=== PATIENT | female | born 1970 | race Caucasian/White ===

== ENCOUNTER 2018-02-11 14:28 | Inpatient (IN) | payer MEDICAID ==
[~2018-02-11] VITALS: Ht 172.7 cm; Wt 105.3 kg
[2018-02-11 15:14] LABS: Basophils # (auto) 0 uL; Basophils % (auto) 0.6 % (0.0-2.0); Eosinophils # (auto) 0.1 uL; Eosinophils % (auto) 0.8 % (0.0-7.0); Hematocrit 49.8 % (36.0-46.0); Hemoglobin 16.8 g/dL (12.2-16.2); Mean Corpuscular Hemoglobin 32.2 pg (28.0-32.0); Mean Corpuscular Hgb Conc. 33.6 g/dL (32.0-36.0); Mean Corpuscular Volume 95.6 fL (80.0-100.0); Monocytes # (auto) 0.7 uL; Monocytes % (auto) 7.4 % (0.0-12.0); Neutrophils # (auto) 7.2 uL; Neutrophils % (auto) 80.2 % (37.0-80.0); Platelet Count (auto) 257 10^3/uL (140-450); Red Blood Cells 5.21 10^6/uL (4.0-5.20); Red Cell Distribution Width 14.7 % (11.8-14.3); White Blood Cell 8.9 10^3/uL (4.4-10.8)
[2018-02-11 15:32] LABS: Urine Bacteria NONE SEEN /hpf (None Seen); Urine Blood Negative /uL (Negative); Urine Specific Gravity 1.016 (1.001-1.035); Urine WBC <1 /hpf (0 - 5)
[2018-02-11 15:33] LABS: Albumin 2.8 g/dL (3.4-5.0); BUN/Creatinine Ratio 17.7; Bilirubin, Total 0.6 mg/dL (0.2-1.0); Calcium 8.5 mg/dL (8.5-10.1); Magnesium 1.9 mg/dL (1.6-2.6); Potassium 4.1 mmol/L (3.5-5.1); Total Protein 6.5 g/dL (6.4-8.2)
[2018-02-11] MEDS ORDERED: IOHEXOL 350 MG/ML 100ML IJ ONE (17:07)
[2018-02-11] MEDS ORDERED: FUROSEMIDE 40 MG/4 ML VIAL IV ONE (18:45)
[2018-02-11] MEDS ORDERED: cefTRIAXone 1GM/10ml IVPUSH 10 ML IV ONE (18:45)
[2018-02-11] MEDS ORDERED: NITROGLYCERIN 0.4 MG SL TAB SL PRN (19:00)
[2018-02-11] MEDS ORDERED: MORPHINE SULFATE 4 MG/ML SYR/VIAL IV PRN (19:00)
[2018-02-11] MEDS ORDERED: chlordiazePOXIDE HCL 25 MG CAP PO PRN (20:00)
[2018-02-11] MEDS ORDERED: HYDROcodone-ACET 5/325MG TAB PO PRN (20:00)
[2018-02-11] MEDS ORDERED: THIAMINE 100mg/ml INJ (200mg/2ml VIAL) IV ONE (20:00)
[2018-02-11] MEDS ORDERED: ENALAPRILAT 1.25 MG/ML-1ML VIAL IV PRN (20:00)
[2018-02-11] MEDS ORDERED: LEVOFLOXACIN 500MG 100 ML IV ONE (20:00)
[2018-02-11] MEDS ORDERED: ONDANSETRON HCL 4 MG/2 ML VIAL IV PRN (20:00)
[2018-02-11] MEDS ORDERED: LACTULOSE 20Gm/30ML SOLN PO PRN (20:00)
[2018-02-11 20:56] LABS: Alcohol, Urine < 3.0 mg/dL (0-5); Amphetamine Screen, Urine POSITIVE (NEGATIVE); Barbiturate Scree,Urine NEGATIVE (NEGATIVE); Benzodiazephine Screen, Urine NEGATIVE (NEGATIVE); Cannabinoid Screen, Urine NEGATIVE (NEGATIVE); Cocaine Screen, Urine NEGATIVE (NEGATIVE); Opiate Scree,Urine NEGATIVE (NEGATIVE); Phencyclidine Screen, Urine NEGATIVE (NEGATIVE)
[2018-02-11 21:29] LABS: INR 0.96 (0.9-1.15); Partial Thromboplastin Time 23.8 sec (23.78-33.04); Prothrombin Time 10.3 sec (9.27-12.13)
[2018-02-11 21:39] VITALS: BP 151/104
[2018-02-11 22:00] VITALS: BP 147/93
[2018-02-11] MEDS: POTASSIUM CHL 20 Meq TABLET PO SCH (22:30)
[2018-02-11] MEDS: SODIUM CHLOR 0.9% PF (SALINE LOCK) 10ML VIAL/SYR IV SCH (22:30)
[2018-02-11] MEDS: ATORVASTATIN 20 MG TAB PO SCH (22:30)
[2018-02-11] MEDS: CARVEDILOL 3.125 MG TAB PO SCH (22:30)
[2018-02-11] MEDS: TEMAZEPAM 15 MG CAP PO PRN (22:49)
[2018-02-11] MEDS: MORPHINE SULFATE 4 MG/ML SYR/VIAL IV PRN (23:10)
[2018-02-12] MEDS: chlordiazePOXIDE HCL 5 MG CAP PO SCH ×6 (00:32→23:52)
[2018-02-12] MEDS ORDERED: ASPI-498 OR (04:48)
[2018-02-12] MEDS ORDERED: ESOM40CA39 PO (04:48)
[2018-02-12] MEDS ORDERED: BENA20TA14 PO (04:48)
[2018-02-12] MEDS ORDERED: TRAZ-220 PO (04:48)
[2018-02-12] MEDS ORDERED: NITR0.4S29 SL (04:48)
[2018-02-12 05:00] VITALS: BP 113/82
[2018-02-12] MEDS: SODIUM CHLOR 0.9% PF (SALINE LOCK) 10ML VIAL/SYR IV SCH ×3 (05:58→22:00)
[2018-02-12] MEDS: FUROSEMIDE 40 MG/4 ML VIAL IV SCH ×2 (05:59→18:26)
[2018-02-12 07:20] LABS: Basophils # (auto) 0.1 uL; Basophils % (auto) 0.8 % (0.0-2.0); Eosinophils # (auto) 0.2 uL; Eosinophils % (auto) 2.4 % (0.0-7.0); Hematocrit 48.5 % (36.0-46.0); Hemoglobin 16.5 g/dL (12.2-16.2); Lymphocytes # (auto) 1.1 uL; Lymphocytes % (auto) 16.6 % (10.0-50.0); Mean Corpuscular Hemoglobin 32.3 pg (28.0-32.0); Monocytes # (auto) 0.5 uL; Monocytes % (auto) 7.9 % (0.0-12.0); Neutrophils # (auto) 4.8 uL; Neutrophils % (auto) 72.3 % (37.0-80.0); Platelet Count (auto) 215 10^3/uL (140-450); Red Blood Cells 5.11 10^6/uL (4.0-5.20); Red Cell Distribution Width 14.4 % (11.8-14.3); White Blood Cell 6.6 10^3/uL (4.4-10.8)
[2018-02-12 07:43] LABS: Albumin 2.7 g/dL (3.4-5.0); BUN/Creatinine Ratio 18.4; Bilirubin, Total 0.4 mg/dL (0.2-1.0); Calcium 8.9 mg/dL (8.5-10.1); Potassium 3.6 mmol/L (3.5-5.1); Total Protein 6.3 g/dL (6.4-8.2)
[2018-02-12 08:31] VITALS: BP 115/74
[2018-02-12] MEDS ORDERED: NITROGLYCERIN 0.2MG/HR TOPICAL PATCH TD SCH (10:00)
[2018-02-12] MEDS: LEVOFLOXACIN 500MG 100 ML IV SCH (10:07)
[2018-02-12] MEDS: THIAMINE 100mg/ml INJ (200mg/2ml VIAL) IV SCH (10:07)
[2018-02-12] MEDS: PANTOPRAZOLE 40 MG TAB PO SCH (10:08)
[2018-02-12] MEDS: POTASSIUM CHL 20 Meq TABLET PO SCH ×2 (10:08→21:48)
[2018-02-12] MEDS: ASPirin 81 mg TAB PO SCH (10:08)
[2018-02-12] MEDS: ENOXAPARIN SOD 40 MG/0.4 ML SYRINGE SC SCH (10:08)
[2018-02-12] MEDS: ENALAPRIL MALEATE 2.5 MG TAB PO SCH (10:13)
[2018-02-12] MEDS: CARVEDILOL 3.125 MG TAB PO SCH ×2 (10:14→21:49)
[2018-02-12] MEDS: ACETAMINOPHEN 500 MG TAB PO PRN (12:17)
[2018-02-12 12:54] VITALS: BP 136/79
[2018-02-12] MEDS: MORPHINE SULFATE 4 MG/ML SYR/VIAL IV PRN ×2 (13:43→18:25)
[2018-02-12 16:36] VITALS: BP 119/75
[2018-02-12] MEDS: ATORVASTATIN 20 MG TAB PO SCH (21:49)
[2018-02-12 22:00] VITALS: BP 115/78
[2018-02-13] MEDS: MORPHINE SULFATE 4 MG/ML SYR/VIAL IV PRN (00:20)
[2018-02-13 05:00] VITALS: BP 119/84
[2018-02-13] MEDS: SODIUM CHLOR 0.9% PF (SALINE LOCK) 10ML VIAL/SYR IV SCH ×3 (05:54→22:17)
[2018-02-13] MEDS: chlordiazePOXIDE HCL 5 MG CAP PO SCH ×4 (05:54→23:15)
[2018-02-13] MEDS: FUROSEMIDE 40 MG/4 ML VIAL IV SCH ×2 (05:54→18:07)
[2018-02-13 09:18] VITALS: BP 124/98
[2018-02-13] MEDS: ENOXAPARIN SOD 40 MG/0.4 ML SYRINGE SC SCH (10:57)
[2018-02-13] MEDS: LEVOFLOXACIN 500MG 100 ML IV SCH (10:57)
[2018-02-13] MEDS: THIAMINE 100mg/ml INJ (200mg/2ml VIAL) IV SCH (10:58)
[2018-02-13] MEDS: CARVEDILOL 3.125 MG TAB PO SCH ×2 (10:59→21:44)
[2018-02-13] MEDS: ENALAPRIL MALEATE 2.5 MG TAB PO SCH (10:59)
[2018-02-13] MEDS: ASPirin 81 mg TAB PO SCH (10:59)
[2018-02-13] MEDS: POTASSIUM CHL 20 Meq TABLET PO SCH ×2 (10:59→21:44)
[2018-02-13] MEDS: PANTOPRAZOLE 40 MG TAB PO SCH (11:00)
[2018-02-13 13:00] VITALS: BP 128/89
[2018-02-13 17:24] VITALS: BP 132/82
[2018-02-13] MEDS: ATORVASTATIN 20 MG TAB PO SCH (21:44)
[2018-02-13 21:50] VITALS: BP 102/68
[2018-02-14 04:54] VITALS: BP 114/86
[2018-02-14] MEDS: chlordiazePOXIDE HCL 5 MG CAP PO SCH ×3 (06:00→18:17)
[2018-02-14] MEDS: SODIUM CHLOR 0.9% PF (SALINE LOCK) 10ML VIAL/SYR IV SCH ×3 (06:11→22:03)
[2018-02-14] MEDS: FUROSEMIDE 40 MG/4 ML VIAL IV SCH ×2 (06:11→18:17)
[2018-02-14] MEDS: ACETAMINOPHEN 500 MG TAB PO PRN (06:16)
[2018-02-14 06:59] LABS: Calcium 8.9 mg/dL (8.5-10.1); Potassium 4.3 mmol/L (3.5-5.1)
[2018-02-14 07:01] LABS: Basophils # (auto) 0 uL; Basophils % (auto) 0.3 % (0.0-2.0); Eosinophils # (auto) 0.1 uL; Eosinophils % (auto) 1.5 % (0.0-7.0); Hematocrit 52.9 % (36.0-46.0); Hemoglobin 17.9 g/dL (12.2-16.2); Lymphocytes # (auto) 1.1 uL; Lymphocytes % (auto) 13.6 % (10.0-50.0); Mean Corpuscular Hemoglobin 32.1 pg (28.0-32.0); Mean Corpuscular Hgb Conc. 33.8 g/dL (32.0-36.0); Monocytes # (auto) 0.8 uL; Monocytes % (auto) 9.4 % (0.0-12.0); Neutrophils # (auto) 6.4 uL; Neutrophils % (auto) 75.2 % (37.0-80.0); Nucleated Red Blood Cells % 0.1 %; Platelet Count (auto) 202 10^3/uL (140-450); Red Blood Cells 5.57 10^6/uL (4.0-5.20); Red Cell Distribution Width 14.6 % (11.8-14.3); White Blood Cell 8.5 10^3/uL (4.4-10.8)
[2018-02-14 07:02] LABS: BUN/Creatinine Ratio 22.9
[2018-02-14 09:00] VITALS: BP 135/93
[2018-02-14] MEDS: POTASSIUM CHL 20 Meq TABLET PO SCH ×2 (09:56→22:01)
[2018-02-14] MEDS: LEVOFLOXACIN 500MG 100 ML IV SCH (09:56)
[2018-02-14] MEDS: PANTOPRAZOLE 40 MG TAB PO SCH (09:56)
[2018-02-14] MEDS: ENOXAPARIN SOD 40 MG/0.4 ML SYRINGE SC SCH (09:56)
[2018-02-14] MEDS: THIAMINE 100mg/ml INJ (200mg/2ml VIAL) IV SCH (09:56)
[2018-02-14] MEDS: ASPirin 81 mg TAB PO SCH (09:56)
[2018-02-14] MEDS: CARVEDILOL 3.125 MG TAB PO SCH ×2 (09:58→22:00)
[2018-02-14] MEDS: ENALAPRIL MALEATE 2.5 MG TAB PO SCH (09:58)
[2018-02-14] MEDS: LORazepam 0.5 MG TAB PO PRN (14:38)
[2018-02-14 17:30] VITALS: BP 117/88
[2018-02-14 22:00] VITALS: BP 109/67
[2018-02-14] MEDS: ATORVASTATIN 20 MG TAB PO SCH (22:01)
[2018-02-14] MEDS: TEMAZEPAM 15 MG CAP PO PRN (22:02)
[2018-02-15 04:46] VITALS: BP 122/81
[2018-02-15] MEDS: chlordiazePOXIDE HCL 5 MG CAP PO SCH ×4 (06:00→19:15)
[2018-02-15] MEDS: FUROSEMIDE 40 MG/4 ML VIAL IV SCH (06:05)
[2018-02-15] MEDS: SODIUM CHLOR 0.9% PF (SALINE LOCK) 10ML VIAL/SYR IV SCH ×3 (06:05→21:59)
[2018-02-15] MEDS ORDERED: ADENOSINE 87 MG in GIVE UN-DILUTED 0 ML IV ONE (08:15)
[2018-02-15 08:43] VITALS: BP 115/73
[2018-02-15 11:42] VITALS: BP 127/79
[2018-02-15 13:00] VITALS: BP 103/70
[2018-02-15] MEDS: THIAMINE 100mg/ml INJ (200mg/2ml VIAL) IV SCH (13:13)
[2018-02-15] MEDS: LEVOFLOXACIN 500MG 100 ML IV SCH (13:14)
[2018-02-15] MEDS: PANTOPRAZOLE 40 MG TAB PO SCH (13:14)
[2018-02-15] MEDS: ASPirin 81 mg TAB PO SCH (13:15)
[2018-02-15] MEDS: ENOXAPARIN SOD 40 MG/0.4 ML SYRINGE SC SCH (13:15)
[2018-02-15] MEDS: POTASSIUM CHL 20 Meq TABLET PO SCH ×2 (13:16→21:56)
[2018-02-15] MEDS: CARVEDILOL 3.125 MG TAB PO SCH ×2 (13:16→21:56)
[2018-02-15] MEDS: ENALAPRIL MALEATE 2.5 MG TAB PO SCH (13:17)
[2018-02-15] MEDS: LORazepam 0.5 MG TAB PO PRN (13:32)
[2018-02-15] MEDS ORDERED: HYDROcodone-ACET 5/325MG TAB PO PRN (15:00)
[2018-02-15] MEDS ORDERED: MORPHINE SULFATE 4 MG/ML SYR/VIAL IV PRN ×2 (15:00)
[2018-02-15 17:19] VITALS: BP 108/72
[2018-02-15] MEDS: FUROSEMIDE 40 MG TAB PO SCH (19:15)
[2018-02-15] MEDS: TEMAZEPAM 15 MG CAP PO PRN (21:55)
[2018-02-15] MEDS: ATORVASTATIN 20 MG TAB PO SCH (21:56)
[2018-02-15 22:00] VITALS: BP 105/76
[2018-02-16] MEDS: chlordiazePOXIDE HCL 5 MG CAP PO SCH ×4 (00:04→18:04)
[2018-02-16 05:28] VITALS: BP 118/79
[2018-02-16] MEDS: FUROSEMIDE 40 MG TAB PO SCH (06:11)
[2018-02-16] MEDS: SODIUM CHLOR 0.9% PF (SALINE LOCK) 10ML VIAL/SYR IV SCH ×3 (06:12→21:15)
[2018-02-16 07:29] LABS: BUN/Creatinine Ratio 24.1; Calcium 9.1 mg/dL (8.5-10.1)
[2018-02-16 08:48] VITALS: BP 104/79
[2018-02-16] MEDS ORDERED: ENA2.5T PO (10:41)
[2018-02-16] MEDS ORDERED: ATOR20TA50 PO (10:41)
[2018-02-16] MEDS ORDERED: POTA20TA53 PO (10:41)
[2018-02-16] MEDS ORDERED: FURO40TA4 PO (10:41)
[2018-02-16] MEDS ORDERED: CAR3125T PO (10:41)
[2018-02-16] MEDS: ASPirin 81 mg TAB PO SCH (10:49)
[2018-02-16] MEDS: THIAMINE HCL 100 MG TAB PO SCH (10:49)
[2018-02-16] MEDS: POTASSIUM CHL 20 Meq TABLET PO SCH (10:49)
[2018-02-16] MEDS: PANTOPRAZOLE 40 MG TAB PO SCH (10:49)
[2018-02-16] MEDS: CARVEDILOL 3.125 MG TAB PO SCH ×2 (10:50→21:16)
[2018-02-16] MEDS: ENOXAPARIN SOD 40 MG/0.4 ML SYRINGE SC SCH (10:50)
[2018-02-16] MEDS: ENALAPRIL MALEATE 2.5 MG TAB PO SCH (10:50)
[2018-02-16 13:00] VITALS: BP 113/87
[2018-02-16 17:00] VITALS: BP 106/69
[2018-02-16] MEDS: ATORVASTATIN 20 MG TAB PO SCH (21:16)
[2018-02-16 22:00] VITALS: BP 102/69
[2018-02-16] MEDS ORDERED: SODIUM CHLORIDE 0.9% 1,000 ML IV SCH (23:00)
[2018-02-17] MEDS: chlordiazePOXIDE HCL 5 MG CAP PO SCH ×3 (00:13→12:00)
[2018-02-17 05:00] VITALS: BP 99/64
[2018-02-17] MEDS: SODIUM CHLOR 0.9% PF (SALINE LOCK) 10ML VIAL/SYR IV SCH (06:40)
[2018-02-17] MEDS: LORazepam 0.5 MG TAB PO PRN (06:41)
[2018-02-17 09:00] VITALS: BP 104/76
[2018-02-17] MEDS ORDERED: LIDOCAINE 2% (LOCAL ANESTH.) PF 5ml SDV ONE (09:02)
[2018-02-17] MEDS ORDERED: ANGIOMAX 250 MG VIAL IV ONE (09:18)
[2018-02-17] MEDS ORDERED: SODIUM CHL 0.9% 0 ML ONE (09:19)
[2018-02-17] MEDS ORDERED: MIDAZOLAM HCL 1MG/1ML-2 ML VIAL ONE (09:19)
[2018-02-17] MEDS ORDERED: fentaNYL CITRATE 100 MCG/2 ML VL ONE (09:24)
[2018-02-17] MEDS: ENALAPRIL MALEATE 2.5 MG TAB PO SCH (10:00)
[2018-02-17] MEDS ORDERED: POTASSIUM CHL 20 Meq TABLET PO SCH (10:00)
[2018-02-17] MEDS: ENOXAPARIN SOD 40 MG/0.4 ML SYRINGE SC SCH (10:00)
[2018-02-17] MEDS: CARVEDILOL 3.125 MG TAB PO SCH (10:00)
[2018-02-17] MEDS: ASPirin 81 mg TAB PO SCH (10:00)
[2018-02-17] MEDS: THIAMINE HCL 100 MG TAB PO SCH (10:00)
[2018-02-17] MEDS: PANTOPRAZOLE 40 MG TAB PO SCH (10:00)
[2018-02-17] MEDS ORDERED: FUROSEMIDE 40 MG TAB PO SCH (10:00)
[2018-02-17 12:21] VITALS: BP 104/76
== END 2018-02-17 13:30 | disposition home or self-care (01) | DRG 192 ==
LOC: ER 14:30 → TELE 14:31 → TELE-WESTW 21:11
PROVIDERS: ADMIT Internal Medicine; ATTEND Internal Medicine
PROC: 4A023N7 Measurement of Cardiac Sampling and Pressure, Left Heart, Percutaneous Approach (ICD-10-PCS; principal; 2018-02-17)
PROC: B2111ZZ Fluoroscopy of Multiple Coronary Arteries using Low Osmolar Contrast (ICD-10-PCS; 2018-02-17)
PROC: B2151ZZ Fluoroscopy of Left Heart using Low Osmolar Contrast (ICD-10-PCS; 2018-02-17)
DX: I11.0 Hypertensive heart disease with heart failure (principal); I21.4 Non-ST elevation (NSTEMI) myocardial infarction; J18.1 Lobar pneumonia, unspecified organism; I42.7 Cardiomyopathy due to drug and external agent; E44.0 Moderate protein-calorie malnutrition; I42.9 Cardiomyopathy, unspecified; E66.01 Morbid (severe) obesity due to excess calories; J44.0 Chronic obstructive pulmonary disease with (acute) lower respiratory infection; I50.41 Acute combined systolic (congestive) and diastolic (congestive) heart failure; I50.82 Biventricular heart failure; E78.5 Hyperlipidemia, unspecified; F17.210 Nicotine dependence, cigarettes, uncomplicated; F12.90 Cannabis use, unspecified, uncomplicated; T43.625A Adverse effect of amphetamines, initial encounter; K21.9 Gastro-esophageal reflux disease without esophagitis; F41.9 Anxiety disorder, unspecified; N83.201 Unspecified ovarian cyst, right side; Z86.73 Personal history of transient ischemic attack (TIA), and cerebral infarction without residual deficits; Z90.49 Acquired absence of other specified parts of digestive tract; Z90.710 Acquired absence of both cervix and uterus; Z68.35 Body mass index [BMI] 35.0-35.9, adult; Y92.89 Other specified places as the place of occurrence of the external cause
CPT/HCPCS: 36415; 71045; 71046; 71275; 74176; 76604; 76830; 76856; 78452; 80048; 80053; 80061; 80307; 81001; 82550; 83605; 83735; 83880; 84443; 84484; 85025; 85379; 85610; 85652; 85730; 86141; 86304; 86850; 86900; 86901; 87040; 93005; 93017; 93306; 93458; 96365; 96375; 99152; 99291; A6257; J0153; J0696; J1956; J2001; J2250; J2405

== ENCOUNTER 2019-04-20 20:56 | Emergency (ER) | payer MEDICAID ==
[~2019-04-20] VITALS: Ht 172.7 cm; Wt 104.3 kg
[~2019-04-20 20:56] MED LIST: ASPI-498 OR; ATOR20TA50 PO; CAR3125T PO; ENAL2.5T2 PO; ESOM40CA39 PO; FURO40TA4 PO; NITR0.4S29 SL; POTA-220 PO; TRAZ-220 PO
[2019-04-20] MEDS ORDERED: cloNIDine HCL 0.1 MG TAB PO ONE (21:15)
[2019-04-20 21:54] LABS: Albumin 3.4 g/dL (3.4-5.0); Calcium 8.5 mg/dL (8.5-10.1)
[2019-04-20 21:57] LABS: BUN/Creatinine Ratio 20.5; Bilirubin, Total 0.3 mg/dL (0.2-1.0); Total Protein 6.5 g/dL (6.4-8.2)
[2019-04-20 22:00] LABS: Basophils # (auto) 0.1 uL; Basophils % (auto) 0.9 % (0.0-2.0); Eosinophils # (auto) 0.1 uL; Eosinophils % (auto) 1.1 % (0.0-7.0); Hematocrit 47.1 % (36.0-46.0); Hemoglobin 15.7 g/dL (12.2-16.2); Lymphocytes # (auto) 1.5 uL; Lymphocytes % (auto) 16.8 % (10.0-50.0); Mean Corpuscular Hemoglobin 31.9 pg (28.0-32.0); Mean Corpuscular Hgb Conc. 33.4 g/dL (32.0-36.0); Mean Corpuscular Volume 95.6 fL (80.0-100.0); Monocytes # (auto) 0.6 uL; Monocytes % (auto) 6.1 % (0.0-12.0); Neutrophils # (auto) 6.8 uL; Neutrophils % (auto) 75.1 % (37.0-80.0); Nucleated Red Blood Cells % 0.1 %; Platelet Count (auto) 242 10^3/uL (140-450); Red Blood Cells 4.93 10^6/uL (4.0-5.20); Red Cell Distribution Width 14.7 % (11.8-14.3)
[2019-04-20 22:20] LABS: Urine Bacteria NONE SEEN /hpf (None Seen); Urine Blood Negative /uL (Negative); Urine Specific Gravity 1.011 (1.001-1.035); Urine WBC 1 /hpf (0 - 5)
[2019-04-20 22:37] LABS: Alcohol, Urine < 3.0 mg/dL (0-5); Amphetamine Screen, Urine POSITIVE (NEGATIVE); Barbiturate Scree,Urine NEGATIVE (NEGATIVE); Benzodiazephine Screen, Urine NEGATIVE (NEGATIVE); Cannabinoid Screen, Urine NEGATIVE (NEGATIVE); Cocaine Screen, Urine NEGATIVE (NEGATIVE); Opiate Scree,Urine NEGATIVE (NEGATIVE); Phencyclidine Screen, Urine NEGATIVE (NEGATIVE)
[2019-04-21] MEDS ORDERED: FUROSEMIDE 40 MG/4 ML VIAL IV ONE (00:30)
[2019-04-21 02:00] VITALS: BP 145/100
== END 2019-04-21 02:16 | disposition home or self-care (01) ==
LOC: ER 20:58
DX: I20.9 Angina pectoris, unspecified (principal); I11.0 Hypertensive heart disease with heart failure; I50.9 Heart failure, unspecified; K21.9 Gastro-esophageal reflux disease without esophagitis; E78.5 Hyperlipidemia, unspecified; F17.210 Nicotine dependence, cigarettes, uncomplicated
CPT/HCPCS: 36415; 71045; 80053; 80307; 81001; 83880; 84484; 85025; 93005; 96374; 99284; J1940

== ENCOUNTER 2021-09-12 15:19 | Inpatient (IN) | payer MEDICAID ==
[~2021-09-12] VITALS: Ht 170.2 cm; Wt 117.9 kg
[~2021-09-12 15:19] MED LIST changes: -ASPI-498 OR; +ASPI-498 PO; +BENA20TA14 PO; +CAR125T PO; -CAR3125T PO; +CEPH500C PO; -ENAL2.5T2 PO; +POTA10TA51 PO
[2021-09-12] MEDS ORDERED: ASPirin 81 mg TAB PO ONE (15:45)
[2021-09-12 16:17] LABS: Basophils # (auto) 0.1 10 ^3/uL (0-0.2); Basophils % (auto) 0.8 % (0.0-2.0); Eosinophils # (auto) 0.1 10 ^3/uL (0-0.8); Eosinophils % (auto) 1.4 % (0.0-7.0); Hematocrit 46.9 % (36.0-46.0); Hemoglobin 16.1 g/dL (12.2-16.2); Lymphocytes # (auto) 1.4 10 ^3/uL (0.4-5.4); Lymphocytes % (auto) 18.7 % (10.0-50.0); Mean Corpuscular Hemoglobin 33.4 pg (28.0-32.0); Mean Corpuscular Hgb Conc. 34.3 g/dL (32.0-36.0); Mean Corpuscular Volume 97.5 fL (80.0-100.0); Monocytes # (auto) 0.6 10 ^3/uL (0-1.3); Monocytes % (auto) 8.3 % (0.0-12.0); Neutrophils # (auto) 5.4 10 ^3/uL (1.6-8.6); Neutrophils % (auto) 70.8 % (37.0-80.0); Nucleated Red Blood Cells % 0.1 %; Red Blood Cells 4.81 10^6/uL (4.0-5.20); Red Cell Distribution Width 14.4 % (11.8-14.3); White Blood Cell 7.7 10^3/uL (4.4-10.8)
[2021-09-12 16:42] LABS: Albumin 3.2 g/dL (3.4-5.0); Calcium 9.2 mg/dL (8.5-10.1); Magnesium 2.2 mg/dL (1.6-2.6); Potassium 4.3 mmol/L (3.5-5.1)
[2021-09-12 16:46] LABS: BUN/Creatinine Ratio 16.5; Bilirubin, Total 0.6 mg/dL (0.2-1.0)
[2021-09-12] MEDS ORDERED: ENOXAPARIN SOD 100 MG/1 ML SYRINGE SC ONE (17:15)
[2021-09-12] MEDS ORDERED: MORPHINE SULFATE INJECTION 2 MG/ML SYRG IV PRN ×2 (17:30→20:15)
[2021-09-12] MEDS ORDERED: NITROGLYCERIN 0.4 MG SL TAB SL PRN (17:30)
[2021-09-12] MEDS ORDERED: LORazepam 0.5 MG TAB PO PRN (20:15)
[2021-09-12] MEDS ORDERED: NIFEdipine ER 30 MG TAB PO ONE (20:15)
[2021-09-12] MEDS ORDERED: cefTRIAXone 1GM/50ML D5W 50 ML IV ONE (20:15)
[2021-09-12] MEDS ORDERED: MULTIPLE VITAMINS W/ MINERALS TAB PO ONE (20:15)
[2021-09-12] MEDS ORDERED: FOLIC ACID 1 MG TAB PO ONE (20:15)
[2021-09-12] MEDS ORDERED: PANTOPRAZOLE 40 MG/10 ML VIAL INJ IV ONE (20:15)
[2021-09-12] MEDS ORDERED: DOCUSATE SOD 100 MG CAP PO PRN (20:15)
[2021-09-12] MEDS ORDERED: CLINDAMYCIN 600MG IV 50 ML IV ONE (20:15)
[2021-09-12] MEDS ORDERED: IPRATROPIUM BROM 0.5 MG/2.5ML INH SOL NEB ONE (20:15)
[2021-09-12] MEDS ORDERED: hydrALAZINE HCL 20 MG/ML VL IV PRN (20:15)
[2021-09-12] MEDS ORDERED: LABETALOL HCL 5 MG/ML 4ML SYRINGE IV PRN (20:15)
[2021-09-12] MEDS ORDERED: METOPROLOL SUCCINATE XL 50 MG TAB PO ONE (20:15)
[2021-09-12] MEDS ORDERED: ONDANSETRON HCL 4 MG/2 ML VIAL IV PRN (20:15)
[2021-09-12] MEDS ORDERED: ACETAMINOPHEN 325 MG TAB PO PRN (20:15)
[2021-09-12] MEDS ORDERED: LORazepam 2MG/ML-1ML VIAL IV PRN (20:15)
[2021-09-12] MEDS ORDERED: BENAZEPRIL HCL 10 MG TAB PO ONE (20:15)
[2021-09-12] MEDS ORDERED: IPRATROPIUM BROM 0.5 MG/2.5ML INH SOL NEB SCH (20:41)
[2021-09-12 21:08] VITALS: BP 176/98
[2021-09-12 21:40] LABS: Phosphorus 3.8 mg/dL (2.5-4.90)
[2021-09-12] MEDS: IPRATROPIUM BROM 0.5 MG/2.5ML INH SOL NEB SCH (21:45)
[2021-09-12 21:46] LABS: INR 1.03 (0.9-1.15); Partial Thromboplastin Time 27.9 sec (23.6-33.0)
[2021-09-12] MEDS ORDERED: ATORVASTATIN 20 MG TAB PO SCH (22:00)
[2021-09-12] MEDS: CLINDAMYCIN 600MG IV 50 ML IV SCH (23:57)
[2021-09-13] MEDS: HYDROcodone-ACET 5/325MG TAB PO PRN ×2 (01:51→16:59)
[2021-09-13 01:52] VITALS: BP 183/116
[2021-09-13] MEDS: IPRATROPIUM BROM 0.5 MG/2.5ML INH SOL NEB SCH ×4 (02:05→14:00)
[2021-09-13 05:21] VITALS: BP 118/63
[2021-09-13] MEDS: CLINDAMYCIN 600MG IV 50 ML IV SCH ×2 (06:25→13:48)
[2021-09-13 07:18] LABS: Basophils # (auto) 0 10 ^3/uL (0-0.2); Basophils % (auto) 0.4 % (0.0-2.0); Eosinophils # (auto) 0.1 10 ^3/uL (0-0.8); Eosinophils % (auto) 1.6 % (0.0-7.0); Hemoglobin 15.8 g/dL (12.2-16.2); Lymphocytes # (auto) 1.5 10 ^3/uL (0.4-5.4); Lymphocytes % (auto) 19.9 % (10.0-50.0); Mean Corpuscular Hemoglobin 33.5 pg (28.0-32.0); Mean Corpuscular Hgb Conc. 34.3 g/dL (32.0-36.0); Mean Corpuscular Volume 97.7 fL (80.0-100.0); Monocytes # (auto) 0.6 10 ^3/uL (0-1.3); Monocytes % (auto) 7.8 % (0.0-12.0); Neutrophils # (auto) 5.2 10 ^3/uL (1.6-8.6); Neutrophils % (auto) 70.3 % (37.0-80.0); Nucleated Red Blood Cells % 0.1 %; Red Blood Cells 4.71 10^6/uL (4.0-5.20); Red Cell Distribution Width 14.8 % (11.8-14.3); White Blood Cell 7.4 10^3/uL (4.4-10.8)
[2021-09-13 07:26] LABS: INR 1.03 (0.9-1.15); Partial Thromboplastin Time 28.3 sec (23.6-33.0)
[2021-09-13 07:54] LABS: Urine Bacteria FEW /hpf (None Seen); Urine Blood Negative /uL (Negative); Urine Specific Gravity 1.026 (1.001-1.035); Urine WBC 11 /hpf (0 - 5)
[2021-09-13 08:48] LABS: Potassium 3.7 mmol/L (3.5-5.1)
[2021-09-13 08:49] LABS: Alcohol, Urine < 3.0 mg/dL (0-10); Amphetamine Screen, Urine POSITIVE (NEGATIVE); Barbiturate Scree,Urine NEGATIVE (NEGATIVE); Benzodiazephine Screen, Urine NEGATIVE (NEGATIVE); Cannabinoid Screen, Urine POSITIVE (NEGATIVE); Cocaine Screen, Urine NEGATIVE (NEGATIVE); Phencyclidine Screen, Urine NEGATIVE (NEGATIVE)
[2021-09-13 08:52] LABS: Albumin 3.1 g/dL (3.4-5.0); BUN/Creatinine Ratio 15.9; Calcium 9.2 mg/dL (8.5-10.1)
[2021-09-13 08:55] LABS: Bilirubin, Total 0.4 mg/dL (0.2-1.0); Total Protein 6.7 g/dL (6.4-8.2)
[2021-09-13 08:55] LABS: Opiate Scree,Urine NEGATIVE (NEGATIVE)
[2021-09-13 09:00] VITALS: BP 113/78
[2021-09-13] MEDS ORDERED: cefTRIAXone 1GM/50ML D5W 50 ML IV SCH (09:00)
[2021-09-13] MEDS ORDERED: MULTIPLE VITAMINS W/ MINERALS TAB PO SCH (10:00)
[2021-09-13] MEDS ORDERED: BENAZEPRIL HCL 10 MG TAB PO SCH (10:00)
[2021-09-13] MEDS ORDERED: FOLIC ACID 1 MG TAB PO SCH (10:00)
[2021-09-13] MEDS ORDERED: ENOXAPARIN SOD 40 MG/0.4 ML SYRINGE SC SCH (10:00)
[2021-09-13] MEDS ORDERED: METOPROLOL SUCCINATE XL 50 MG TAB PO SCH (10:00)
[2021-09-13] MEDS ORDERED: PANTOPRAZOLE 40 MG/10 ML VIAL INJ IV SCH (10:00)
[2021-09-13] MEDS ORDERED: NIFEdipine ER 30 MG TAB PO SCH (10:00)
[2021-09-13] MEDS ORDERED: ASPirin 81 mg TAB PO SCH (10:00)
[2021-09-13 13:25] VITALS: BP 116/74
[2021-09-13 16:48] VITALS: BP 148/99
[2021-09-13] MEDS ORDERED: IPRATROPIUM BROM 0.5 MG/2.5ML INH SOL NEB SCH (18:00)
[2021-09-13 19:21] LABS: Magnesium 2.1 mg/dL (1.6-2.6)
[2021-09-13 19:27] LABS: Phosphorus 3.4 mg/dL (2.5-4.90)
[2021-09-14 14:46] LABS: Uric Acid 5.8 mg/dL (2.6-6.0)
[2021-09-14 14:47] LABS: CRP High Sensitivity 0.611 mg/dL (< 0.3)
== END 2021-09-13 17:35 | disposition left against medical advice (07) | DRG 190 ==
LOC: ER 15:19 → TELE 17:22 → TELE-EAST 22:28
PROVIDERS: ADMIT Hospitalist; ATTEND Internal Medicine
DX: I21.4 Non-ST elevation (NSTEMI) myocardial infarction (principal); I42.8 Other cardiomyopathies; E11.9 Type 2 diabetes mellitus without complications; I11.0 Hypertensive heart disease with heart failure; I50.22 Chronic systolic (congestive) heart failure; F10.10 Alcohol abuse, uncomplicated; F15.10 Other stimulant abuse, uncomplicated; Z53.29 Procedure and treatment not carried out because of patient's decision for other reasons; I16.1 Hypertensive emergency; N83.201 Unspecified ovarian cyst, right side; Z20.822 Contact with and (suspected) exposure to COVID-19; Z90.49 Acquired absence of other specified parts of digestive tract; Z90.710 Acquired absence of both cervix and uterus; Z86.73 Personal history of transient ischemic attack (TIA), and cerebral infarction without residual deficits; Z83.3 Family history of diabetes mellitus; Z91.19 Patient's noncompliance with other medical treatment and regimen; J44.9 Chronic obstructive pulmonary disease, unspecified
CPT/HCPCS: 36415; 70450; 71046; 80053; 80061; 80307; 81001; 82550; 82728; 83036; 83615; 83690; 83735; 83880; 84100; 84156; 84443; 84484; 84550; 85025; 85379; 85610; 85652; 85730; 86141; 87040; 87086; 93005; 94640; 96372; 99291; C9113; G0378; J0696; J3490

== ENCOUNTER 2023-06-25 11:23 | Emergency (ER) | payer MEDICAID ==
[~2023-06-25] VITALS: Ht 172.7 cm; Wt 111.8 kg
[~2023-06-25 11:23] MED LIST changes: +BENA-36 PO; -BENA20TA14 PO
[2023-06-25] MEDS ORDERED: METF-489 PO (12:08)
[2023-06-25] MEDS: cloNIDine HCL 0.1 MG TAB PO ONE ×2 (12:08→14:18)
[2023-06-25] MEDS ORDERED: POTA-220 PO (12:08)
[2023-06-25] MEDS ORDERED: BENA-36 PO (12:08)
[2023-06-25] MEDS ORDERED: CARV12.544 PO (12:08)
[2023-06-25 13:14] LABS: Basophils # (auto) 0 10 ^3/uL (0-0.2); Basophils % (auto) 0.4 % (0.0-2.0); Eosinophils # (auto) 0.1 10 ^3/uL (0-0.8); Eosinophils % (auto) 1.2 % (0.0-7.0); Hemoglobin 17.1 g/dL (12.2-16.2); Lymphocytes # (auto) 1.4 10 ^3/uL (0.4-5.4); Mean Corpuscular Hgb Conc. 32.8 g/dL (32.0-36.0); Mean Corpuscular Volume 97.4 fL (80.0-100.0); Monocytes # (auto) 0.7 10 ^3/uL (0-1.3); Monocytes % (auto) 8.2 % (0.0-12.0); Neutrophils # (auto) 5.8 10 ^3/uL (1.6-8.6); Neutrophils % (auto) 73.2 % (37.0-80.0); Nucleated Red Blood Cells % 0.3 %; Red Blood Cells 5.34 10^6/uL (4.0-5.20); Red Cell Distribution Width 15.5 % (11.8-14.3)
[2023-06-25 13:36] LABS: Chloride 106 mmol/L (98-107); Sodium 141 mmol/L (136-145)
[2023-06-25 13:37] LABS: Anion Gap 5 (5-15); Carbon Dioxide 30 mmol/L (20-30)
[2023-06-25 13:38] LABS: Calcium 9.9 mg/dL (8.5-10.1)
[2023-06-25 13:42] LABS: Glucose 96 mg/dL (74-106)
[2023-06-25 13:43] LABS: BUN/Creatinine Ratio 13.9 (10.0-20.0); Blood Urea Nitrogen 11 mg/dL (9-23)
[2023-06-25 15:25] VITALS: BP 151/88; PULSE 87; RESP 17; TEMP 98.7; O2SAT 98
== END 2023-06-25 15:26 | disposition home or self-care (01) ==
LOC: ER 11:23
DX: I16.0 Hypertensive urgency (principal); I11.0 Hypertensive heart disease with heart failure; I50.9 Heart failure, unspecified; E11.9 Type 2 diabetes mellitus without complications; E78.5 Hyperlipidemia, unspecified; J44.9 Chronic obstructive pulmonary disease, unspecified; K21.9 Gastro-esophageal reflux disease without esophagitis; F17.210 Nicotine dependence, cigarettes, uncomplicated; Z90.49 Acquired absence of other specified parts of digestive tract; Z90.710 Acquired absence of both cervix and uterus; Z79.82 Long term (current) use of aspirin; Z79.899 Other long term (current) drug therapy
CPT/HCPCS: 36415; 80048; 82962; 85025; 93005

== ENCOUNTER 2023-09-03 14:10 | Emergency (ER) | payer MEDICAID ==
[~2023-09-03] VITALS: Ht 172.7 cm; Wt 111.5 kg
[~2023-09-03 14:10] MED LIST changes: +CARV12.544 PO; +METF-489 PO; +POTA-36 PO; -POTA10TA51 PO
[2023-09-03 14:40] VITALS: BP 154/112; RESP 17; O2SAT 96
[2023-09-03] MEDS ORDERED: ONDANSETRON ODT 4 MG TAB PO ONE (15:00)
[2023-09-03] MEDS ORDERED: HYDROcodone-ACET 10/325MG TAB PO ONE (15:00)
[2023-09-03 15:30] LABS: Urine Amorphous Crystal FEW /hpf (None Seen); Urine Bacteria FEW /hpf (None Seen); Urine Blood 1+ /uL (Negative); Urine Clarity Clear (Clear); Urine Color Yellow (Yellow); Urine Protein, UAD 3+ (Negative); Urine Specific Gravity 1.012 (1.001-1.035); Urine Urobilinogen Normal (Negative); Urine WBC 3 /hpf (0 - 5)
[2023-09-03 15:31] LABS: Basophils # (auto) 0.1 10 ^3/uL (0-0.2); Basophils % (auto) 0.7 % (0.0-2.0); Eosinophils # (auto) 0.1 10 ^3/uL (0-0.8); Eosinophils % (auto) 1.6 % (0.0-7.0); Hematocrit 50.2 % (36.0-46.0); Hemoglobin 16.6 g/dL (12.2-16.2); Lymphocytes # (auto) 1.4 10 ^3/uL (0.4-5.4); Lymphocytes % (auto) 17.1 % (10.0-50.0); Mean Corpuscular Hemoglobin 31.1 pg (28.0-32.0); Mean Corpuscular Volume 94.4 fL (80.0-100.0); Monocytes # (auto) 0.6 10 ^3/uL (0-1.3); Monocytes % (auto) 7.8 % (0.0-12.0); Neutrophils # (auto) 5.9 10 ^3/uL (1.6-8.6); Neutrophils % (auto) 72.8 % (37.0-80.0); Nucleated Red Blood Cells % 0.1 %; Red Blood Cells 5.32 10^6/uL (4.0-5.20); Red Cell Distribution Width 15.1 % (11.8-14.3); White Blood Cell 8.1 10^3/uL (4.4-10.8)
[2023-09-03 15:51] LABS: Alanine Aminotransferase 22 U/L (7-40); Albumin 4.1 g/dL (3.2-4.8); Alkaline Phosphatase 129 U/L (46-116); Anion Gap 6 (5-15); Aspartate Aminotransferase 25 U/L (13-40); BUN/Creatinine Ratio 14.4 (10.0-20.0); Bilirubin, Total 0.9 mg/dL (0.2-1.0); Blood Urea Nitrogen 13 mg/dL (9-23); Calcium 9.8 mg/dL (8.7-10.4); Carbon Dioxide 24 mmol/L (20-30); Chloride 107 mmol/L (98-107); Glucose 150 mg/dL (74-106); Lipase 24 U/L (12-53); Potassium 3.9 mmol/L (3.5-5.1); Sodium 137 mmol/L (136-145); Total Protein 6.4 g/dL (5.7-8.2)
[2023-09-03 16:44] VITALS: PULSE 90
[2023-09-03] MEDS ORDERED: ZOFR4T PO (19:16)
[2023-09-03] MEDS ORDERED: ACE3T PO (19:16)
== END 2023-09-03 23:27 | disposition left against medical advice (07) ==
LOC: ER 14:10
DX: R10.84 Generalized abdominal pain (principal); R10.2 Pelvic and perineal pain; R79.89 Other specified abnormal findings of blood chemistry; I11.0 Hypertensive heart disease with heart failure; I50.9 Heart failure, unspecified; E11.9 Type 2 diabetes mellitus without complications; E78.5 Hyperlipidemia, unspecified; J44.9 Chronic obstructive pulmonary disease, unspecified; K21.9 Gastro-esophageal reflux disease without esophagitis; F17.210 Nicotine dependence, cigarettes, uncomplicated; Z86.73 Personal history of transient ischemic attack (TIA), and cerebral infarction without residual deficits; Z90.49 Acquired absence of other specified parts of digestive tract; Z90.710 Acquired absence of both cervix and uterus; Z79.82 Long term (current) use of aspirin; Z79.899 Other long term (current) drug therapy
CPT/HCPCS: 36415; 74176; 80053; 81001; 81025; 83605; 83690; 83880; 84484; 84702; 85025; 93005

== ENCOUNTER 2024-04-22 19:23 | Emergency (ER) | payer MEDICAID ==
[~2024-04-22] VITALS: Ht 172.7 cm; Wt 112.0 kg
[~2024-04-22 19:23] MED LIST changes: +ACE3T PO; +ZOFR4T PO
--- NOTE | 2024-04-22 19:45 | ED.PDOC ---
Psychiatric HPI Comments 53-year-old female who came to ER for overdose. Patient does have history of hypertension, congestive heart failure, alcohol and methamphetamine abuse. At about 1815 hours, patient intentionally took unknown amounts of Benazepril 20 mg tablets, Chlorthalidone 20mg tablets and Amlodipine/Benazepril tablets in an attempt to harm herself. Patient also admits to have been drinking alcohol earlier. Denies using any other drugs. Denies any history of suicide attempts. Denies being homicidal or and hallucinations. Patient appears very anxious at this time of care Chief Complaint: Overdose Time Seen by MD: 19:43 Primary Care Provider: LUCIANO Chu Notes: Nurses Notes Information Source: Patient Mode of Arrival: Ambulatory Severity: Unable to Care for Self, Unable to Control Self Severity of Pain: Moderate Severity of Mental Status: Moderate Severity of Symptoms: Moderate Timing: Minutes Duration: Since onset Prehospital treatment: None Presents with: Depression, Anxiety, Unclear Thinking, Suicidal Ideation, A lcohol Intoxication Attempt: Ingestion Ingestion: Intentional, Multiple, Ingestion Observed, Drug(s) Ingested (Benazepril 20 mg tablets, Chlorthalidone 20mg tablets and Amlodipine/Benazepril tablets), Amount Ingested (Unknown), ETOH Circumstance: Medical Clearance Current substance abuse: ETOH, Amphetamines Stressors: Relationships History of: Anxiety, Alcoholism, Substance Abuse Quality: Hopelessness, Confusion Associated signs and symptoms: Depression, Hopeless, Anxiety, ETOH Past Medical History PAST MEDICAL HISTORY: Anxiety, CHF, HTN, TIA Surgical History: Cholecystectomy, Hysterectomy Surgical History (Other): Neck surgery GENERAL CARGO CLERK History: No Pertinent GENERAL CARGO CLERK History Family History Family History: Family hx of DM, Family hx of Cancer, Family hx of heart fabricio Social History Smoker: Cigarettes, Greater Than 1 Pack/Day Alcohol: Heavy Drugs: Marijuana, Methamphetamine Lives In: Home Constitutional: denies: chills, diaphoresis, fatigue, fever, malaise, sweats, weakness, others EENTM: denies: blurred vision, double vision, ear bleeding, ear discharge, ear drainage, ear pain, ear ringing, eye pain, eye redness, hearing loss, mouth pain, mouth swelling, nasal discharge, nose bleeding, nose congestion, nose pain, photophobia, tearing, throat pain, throat swelling, voice changes, others Respiratory: denies: cough, hemoptysis, orthopnea, SOB at rest, shortness of breath, SOB with excertion, stridor, wheezing, others Cardiovascular: denies: chest pain, dizzy spells, diaphoresis, Dyspnea on exertion, edema, irregular heart beat, left arm pain, lightheadedness, palpitations, PND, syncope, others Gastrointestinal: denies: abdomen distended, abdominal pain, blood streaked bowels, constipated, diarrhea, dysphagia, difficulty swallowing, hematemesis, melena, nausea, poor appetite, poor fluid intake, rectal bleeding, rectal pain, vomiting, others Genitourinary: denies: abnormal vagina bleeding, burning, dyspareunia, dysuria, flank pain, frequency, hematuria, incontinence, pain, , vagina discharg e, urgency, others Neurological: denies: dizziness, fainting, headache, left sided numbness, left sided weakness, numbness, paresthesia, pre-existing deficit, right sided numbness, right sided weakness, seizure, speech problems, tingling, tremors, weakness, others Musculoskeletal: denies: back pain, gout, joint pain, joint swelling, muscle pain, muscle stiffness, neck pain, others Integumetry: denies: bruises, change in color, change in hair/nails, dryness, laceration, lesions, lumps, rash, wounds, others Allergic/Immunocompromised: denies: Difficulty Healing, Frequent Infections, Hives, Itching, others Hematologic/Lymphatic: denies: anemia, blood clots, easy bleeding, easy bruising, swollen glands, others Endocrine: denies: excessive hunger, excessive sweating, excessive thirst, excessive urination, flushing, intolerance to cold, intolerance to heat, unexplained weight gain, unexplained weight loss, others Psychiatric: reports: anxiety; denies: bipolar disorder, depression, hopeless, panic disorder, schizophrenia, sleepless, suicidal, others Physical Exam General Appearance: No Apparent Distress, Normal HEENT: Normal ENT Inspection, Pharynx Normal, TMs Normal Neck: Full Range of Motion, Non-Tender, Normal, Normal Inspection Respiratory: Chest Non-Tender, Lungs Clear, No Accessory Muscle Use, No Respiratory Distress, Normal Breath Sounds Cardiovascular: No Edema, No JVD, No Murmur, No Gallop, Normal Peripheral Pulses, Regular Rate/Rhythm Breast Exam: Deferred Gastrointestinal: No Organomegaly, Non Tender, No Pulsatile Mass, Normal Bowel Sounds, Soft Genitalia: Deferred Pelvic: Deferred Rectal: Deferred Extremities: No calf tenderness, Normal capillary refill, Normal inspection, Normal range of motion, Non-tender, No pedal edema Musculoskeletal : Apperance: Normal Neurologic: Alert, agricultural service technician II-XII nml as Tested, No Motor Deficits, Normal Affect, Normal Mood, No Sensory Deficits Cerebellar Function: Normal Reflexes: Normal Skin: Dry, Normal Color, Warm Lymphatic: No Adenopathy Was a procedure done? Was a procedure done?: No Psych Differential Dx Psych. Differential Dx: Anxiety, Bipolar Disorder, Depression, Hopeless, Panic Disorder, Suicidal OD Differential Dx: Alcohol Abuse, Anxiety, Depression, Drug Overdose, Intentional, Panic Disorder, Personality Disorder, Suicidal Attempt, Suicidal Gesture X-Ray, Labs, Meds, VS Vital Signs Date Time Temp Pulse Resp B/P (MAP) Pulse Ox O2 Delivery O2 Flow Rate FiO2 04/23/24 04:00 65 04/23/24 03:54 63 14 111/76 (88) 97 04/23/24 02:44 68 20 96/57 (70) 04/23/24 01:28 63 12 113/70 (84) 04/23/24 00:19 60 14 109/58 (75) 97 04/23/24 00:00 67 04/22/24 22:52 62 14 88/54 (65) 96 04/22/24 21:45 63 13 97 Room Air* 0 21 04/22/24 20:15 61 04/22/24 20:13 97.8 63 16 114/62 (79) 97 97.8 04/22/24 19:42 64 04/22/24 19:30 98.1 66 18 134/75 (94) 93 Lab Test 04/22/24 19:52 04/22/24 19:40 Range/Units White Blood Count 6.5 4.4-10.8 10^3/uL Red Blood Count 4.62 4.0-5.20 10^6/uL Hemoglobin 15.1 12.2-16.2 g/dL Hematocrit 45.0 36.0-46.0 % Mean Corpuscular Volume 97.2 80.0-100.0 fL Mean Corpuscular Hemoglobin 32.6 H 28.0-32.0 pg Mean Corpuscular Hemoglobin Concent 33.5 32.0-36.0 g/dL Red Cell Distribution Width 15.2 H 11.8-14.3 % Platelet Count 292 140-450 10^3/uL Mean Platelet Volume 8.3 6.9-10.8 fL Neutrophils (%) (Auto) 60.5 37.0-80.0 % Lymphocytes (%) (Auto) 27.5 10.0-50.0 % Monocytes (%) (Auto) 7.3 0.0-12.0 % Eosinophils (%) (Auto) 4.0 0.0-7.0 % Basophils (%) (Auto) 0.7 0.0-2.0 % Neutrophils # (Auto) 3.9 1.6-8.6 10 ^3/uL Lymphocytes # (Auto) 1.8 0.4-5.4 10 ^3/uL Monocytes # (Auto) 0.5 0-1.3 10 ^3/uL Eosinophils # (Auto) 0.3 0-0.8 10 ^3/uL Basophils # (Auto) 0 0-0.2 10 ^3/uL Nucleated Red Blood Cells 0.1 % Sodium Level 141 136-145 mmol/L Potassium Level 3.9 3.5-5.1 mmol/L Chloride Level 102 98-107 mmol/L Carbon Dioxide Level 29 20-31 mmol/L Anion Gap 10 5-15 Blood Urea Nitrogen 20 9-23 mg/dL Creatinine 0.82 0.550-1.02 mg/dL Glomerular Filtration Rate Calc 84 >90 mL/min BUN/Creatinine Ratio 24.4 H 10.0-20.0 Serum Glucose 103 74-106 mg/dL Calcium Level 10.3 8.7-10.4 mg/dL Salicylates Level < 3.0 -30 mg/dL Acetaminophen Level < 2.0 L 10.0-20.0 UG/ML Plasma/Serum Blood Alcohol 115.6 H <10 mg/dL Urine Color Light-yellow Yellow Urine Clarity Clear Clear Urine pH 6.0 5.0-9.0 Urine Specific Rhodes 1.012 1.001-1.035 Urine Protein Negative Negative Urine Ketones Negative Negative Urine Blood Negative Negative /uL Urine Nitrite Negative Negative Urine Bilirubin Negative Negative Urine Urobilinogen Normal Negative mg/dL Urine Leukocyte Esterase Negative Negative /uL Urine RBC <1 0 - 4 /hpf Urine WBC 1 0 - 5 /hpf Urine Squamous Epithelial Cells Few <5 /hpf Urine Bacteria None seen None Seen /hpf Urine Hyaline Casts Few 0 - 2 /lpf Urine Glucose Normal Normal mg/dL Urine Opiates Screen Neg NEGATIVE Urine Fentanyl Screen Neg NEGATIVE Urine Barbiturates Screen Neg NEGATIVE Urine Phencyclidine Screen Neg NEGATIVE Urine Amphetamines Screen Neg NEGATIVE Urine Benzodiazepines Screen Neg NEGATIVE Urine Cocaine Screen Neg NEGATIVE Urine Cannabinoids Screen Neg NEGATIVE Current Medications Medications (Trade) Dose Ordered Sig/Erik Route Start Time Stop Time Status Last Admin Sodium Chloride 1,000 ml @ 1,000 mls/hr Q1H ONCE IV 04/22/24 19:45 04/22/24 20:44 DC 04/22/24 20:30 Time of 1ST Reevaluation: 19:37 Reevaluation 1ST: Unchanged Patient Education/Counseling: Diagnosis, Treatment Family Education/Counseling: No Family Present Departure 1 Departure Time of Disposition: 04:56 (Patient was medically cleared and then evaluated by psychiatry who cleared patient for discharge.) Impression: Primary Impression: Depression Qualified Codes: F32.9 - Major depressive disorder, single episode, unspecified Additional Impression: Medication overdose Qualified Codes: T50.902A - Poisoning by unspecified drugs, medicaments and biological substances, intentional self-harm, initial encounter Disposition: 01 HOME / SELF CARE / HOMELESS Condition: Stable Additional Instructions: It is important to take your regular medications and follow up with the regular doctor. You should follow up with your regular doctor within 1 week. You should stay well rested and well hydrated. If your symptoms worsen or you have any other concerns please return to the emergency room. Discharged With: Self Critical Care Note Critical Care Time?: Yes (35 min-critical care time only) Stability Stability form required: No Heart Score Heart Score: Heart Score Response (Comments) Value History N/A 0 EKG N/A 0 Age N/A 0 Risk Factors N/A 0 Troponin N/A 0 Total 0 I personally scribed for NAUN LOGAN MD ([email or web address]) on 04/22/24 at 19:45. Electronically submitted by Hung Holbrook ([facility]). NAUN LOGAN MD Apr 22, 2024 19:45
[2024-04-22 20:13] VITALS: TEMP 97.8
[2024-04-22] MEDS: SODIUM CHLORIDE 0.9% 1,000 ML IV ONE (20:30)
[2024-04-22 20:31] LABS: Basophils # (auto) 0 10 ^3/uL (0-0.2); Basophils % (auto) 0.7 % (0.0-2.0); Eosinophils # (auto) 0.3 10 ^3/uL (0-0.8); Hemoglobin 15.1 g/dL (12.2-16.2); Lymphocytes # (auto) 1.8 10 ^3/uL (0.4-5.4); Lymphocytes % (auto) 27.5 % (10.0-50.0); Mean Corpuscular Hemoglobin 32.6 pg (28.0-32.0); Mean Corpuscular Hgb Conc. 33.5 g/dL (32.0-36.0); Mean Corpuscular Volume 97.2 fL (80.0-100.0); Monocytes # (auto) 0.5 10 ^3/uL (0-1.3); Monocytes % (auto) 7.3 % (0.0-12.0); Neutrophils # (auto) 3.9 10 ^3/uL (1.6-8.6); Neutrophils % (auto) 60.5 % (37.0-80.0); Nucleated Red Blood Cells % 0.1 %; Platelet Count (auto) 292 10^3/uL (140-450); Red Blood Cells 4.62 10^6/uL (4.0-5.20); Red Cell Distribution Width 15.2 % (11.8-14.3); White Blood Cell 6.5 10^3/uL (4.4-10.8)
[2024-04-22 20:32] LABS: Chloride 102 mmol/L (98-107); Potassium 3.9 mmol/L (3.5-5.1); Sodium 141 mmol/L (136-145)
[2024-04-22 20:33] LABS: Anion Gap 10 (5-15); Carbon Dioxide 29 mmol/L (20-31)
[2024-04-22 20:34] LABS: Calcium 10.3 mg/dL (8.7-10.4)
[2024-04-22 20:39] LABS: BUN/Creatinine Ratio 24.4 (10.0-20.0); Blood Alcohol 115.6 mg/dL (<10); Blood Urea Nitrogen 20 mg/dL (9-23); Glucose 103 mg/dL (74-106)
[2024-04-22 20:58] LABS: Urine Bacteria None Seen /hpf (None Seen)
[2024-04-22 21:15] LABS: Acetaminophen < 2.0 UG/ML (10.0-20.0); Salicylate < 3.0 mg/dL (-30)
[2024-04-22 21:26] LABS: Urine Blood Negative /uL (Negative); Urine Clarity Clear (Clear); Urine Color Light-Yellow (Yellow); Urine Hyaline Cast FEW /lpf (0 - 2); Urine Protein, UAD Negative (Negative); Urine Specific Gravity 1.012 (1.001-1.035); Urine Urobilinogen Normal (Negative); Urine WBC 1 /hpf (0 - 5)
[2024-04-22 21:32] LABS: Amphetamine Screen, Urine Neg (NEGATIVE)
[2024-04-22 21:33] LABS: Barbiturate Scree,Urine Neg (NEGATIVE); Benzodiazephine Screen, Urine Neg (NEGATIVE); Cannabinoid Screen, Urine Neg (NEGATIVE); Cocaine Screen, Urine Neg (NEGATIVE); Opiate Scree,Urine Neg (NEGATIVE); Phencyclidine Screen, Urine Neg (NEGATIVE)
[2024-04-22 21:45] VITALS: PULSE 63; RESP 13; O2SAT 97
--- NOTE | 2024-04-23 03:38 | DVHINCON2 ---
Date of Service if different f: Apr 23, 2024 Time of Service: 03:36 Consult Consult Note PSYCHIATRY ED NEW CONSULT HPI: 53 yo F with no known PPH presents to ED accompanied by son for safety, psychiatric stabilization and possible med initiation in setting of suicide attempt via intentional drug OD. Psychiatry consulted for safety evaluation and recommendations in context of current presentation Per pt, reports intentional ingestion of "handful" tabs of Benazepril 20 mg, Chlorthalidone 20 mg, and Amlodipine tabs in an attempt to harm self mixed with pint of Captdannielle Marquez. Pt states "it was spur of moment, i haven't seen my grand kids, i was mad at my son and i was hurting inside, it was out of impulse and i have never planned to hurt myself, i regret it so i told my son soon after i took it". Pt expresses relief to be alive and states "i have a whole new perspective in life" Currently denies depressed mood, hopelessness, helplessness, isolation, negative thoughts, loss of interest, or anhedonia. Denies anxiety/panic/OCD/PTSD symptoms. Sleep/appetite/energy/conc relatively WNL. Adamantly denies SI/HI. Denies AVH/paranoia/catatonic/perceptual disturbances/personality changes. No overt manic, psychotic, major depressive, cognitive, dissociative phenomena, panic, or somatic symptoms noted. Appears future oriented/goal directed. Denies acute psychosocial stressors. Pt currently does not have psychiatrist/therapist out in community. Currently not on any psychotropic agents. 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 Unknown trauma hx. Unknown FH. No acute medical issues although w/chronic medical issues Does not have hx of suicide attempts, SIB/PSG, or prior psych hospitalizations/5150. Denies history of violence, unprovoked aggression, or assaultive behaviors. Denies recent hx of impulsivity, attention seeking behaviors, anger outbursts, emotional dysregulation, mood reactivity or engaging in risky behaviors. Does not have access to firearms. Currently denies SI/HI. Identifies self/family as PPF. No safety concerns noted during encounter. MSE: General Appearance/Behavior: Alert and awake; appears stated age, overweight, fair grooming and hygiene; calm and cooperative, fair eye contact, no PMA/PMR Speech: coherent, rrr Thought Process: linear, logical, appears goal-directed Thought Content: Abnormal Thoughts and Perceptions: None Homicidality / Violent Thoughts: None Suicidality: adamantly denies SI Hallucinations: denies AVH Delusions: denies paranoia, persecutory, or grandiose delusions Obsessions /compulsions : None Judgment and Insight: fair judgment with fair insight Mood & Affect: "better" with mood-congruent, minimally constricted/restricted, appropriate Orientation: oriented to person, place, time Attention/Concentration: appears intact Memory: grossly intact Language: no unusual or inappropriate language Assessment: 53 yo F with no known PPH presents to ED accompanied by son for safety, psychiatric stabilization and possible med initiation in setting of suicide attempt via intentional drug OD Currently denies SI/HI/AVH. Linear and appears future oriented/ goal directed in thought. Identifies several protective factors including a desire to live, family support, employment, children/grandchildren. No hx of SI/SA/SIB or prior psych hospitalizations is reassuring. Pts presenting MH symptoms appear more secondary to difficulty controlling emotions and ineffective coping mechanisms in context of acute stressor (see HPI) with minimal interference in daily functioning. Presently, pt does not show any signs of immediate danger to self or others that would warrant a higher level of care. Thus, pt does not meet criteria for 5150 or involuntary inpatient psych admission as is not DTS, DTO or GD although voluntary inpt psychiatric hospitalization was offered but pt respectfully declined. Also declined further ED observation/reassessment. No acute safety concerns noted. Acute suicide risk is relatively low. Pt currently does not have psychiatrist/therapist out in community although interested in seeking MH resources prior to d/c for psychotherapy Psychotropic med initiation not clinically indicated at this time Primary Diagnosis: Adjustment disorder with mixed emotions and disturbance of co nduct Plan: Does not warrant involuntary inpatient psychiatric hospitalization or 5150 hold at this time No acute safety concerns Pt can be safely discharged back to current residence Psychotropic med initiation not clinically indicated at this time Supportive tx/motivational interviewing provided, discussed safety plan with pt Encouraged mindfulness techniques (reading, walking, meditation, exercise, deep breathing) during times of stress Please provide pt MH resources prior to discharge per pts request for individual psychotherapy Instructed pt to call [phone] or return to ED if mood symptoms worsen or new onset SI/HI upon discharge low threshold for inpt psych admission if pt returns with similar CC/presentation Pt verbalized understanding and is receptive to above tx plan This case was discussed with ED nurse/provider and all parties in agreement with above tx plan Chano James MD Plan discussed with: Patient CHANO JAMES MD Apr 23, 2024 03:38
[2024-04-23 03:54] VITALS: BP 111/76; RESP 14; O2SAT 97
[2024-04-23 04:00] VITALS: PULSE 65
--- NOTE | 2024-04-25 09:02 | ECG ---
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
== END 2024-04-24 05:19 | disposition home or self-care (01) ==
LOC: ER 19:23
DX: T46.4X2A Poisoning by angiotensin-converting-enzyme inhibitors, intentional self-harm, initial encounter (principal); F32.9 Major depressive disorder, single episode, unspecified; F43.23 Adjustment disorder with mixed anxiety and depressed mood; F17.210 Nicotine dependence, cigarettes, uncomplicated; F10.129 Alcohol abuse with intoxication, unspecified; E66.3 Overweight; I11.0 Hypertensive heart disease with heart failure; I50.9 Heart failure, unspecified; R45.851 Suicidal ideations; F12.10 Cannabis abuse, uncomplicated; F15.10 Other stimulant abuse, uncomplicated; Z71.82 Exercise counseling; Z86.73 Personal history of transient ischemic attack (TIA), and cerebral infarction without residual deficits; Z90.49 Acquired absence of other specified parts of digestive tract; Z79.899 Other long term (current) drug therapy; Z90.710 Acquired absence of both cervix and uterus; Y92.9 Unspecified place or not applicable
CPT/HCPCS: 36415; 80048; 80307; 80320; 80329; 81001; 85025; 93005; 96360; 96361; 99285; J7030

== ENCOUNTER 2025-02-06 15:26 | Inpatient (IN) | payer MEDICAID ==
[~2025-02-06] VITALS: Ht 172.7 cm; Wt 115.3 kg
[~2025-02-06 15:26] MED LIST changes: +AMLO1CAP56 PO; +APIX5TAB PO; +LIDO1PAD55 TOP
--- NOTE | 2025-02-06 16:08 | ED.PDOC ---
HPI (NEURO) HPI Comments 54 F with HTN, pre Dm, hx of OD, Hfref 25%, former meth user,chronic alcoholism, and nictne dependence presented to the ER for the evaluation of dizziness for 1 day, she reports that the dizziness started yesterday when she woke up associated with headache and her BP was high at that time. She denies any motor or sensory weakness, dysphagia or blurry vision, her dizziness has since been resolving. She drinks a beer and 2 shots everyday, smokes 1 pack every week PMH: HTN, pre Dm, hx of OD, Hfref 25%, former meth user,chronic alcoholism, and nictne dependence on arrival patient had elevated BP, Ct head showed no acute intracranial abnormality, chronic microvascular ischemic changes seen, patient admitted to workup possible CVA/TIA Chief Complaint: Dizziness Time Seen by MD: 15:34 Primary Care Provider: Dr. 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: No Pertinent SALES ORDER PROCESSOR History Family History Family History: Family hx of DM, Family hx of Cancer, Family hx of heart fabricio Social History Smoker: Cigarettes, Greater Than 1 Pack/Day Alcohol: Heavy Drugs: Marijuana, Methamphetamine Lives In: Home Constitutional: reports: weakness EENTM: denies: blurred vision, double vision, ear bleeding, ear discharge, ear drainage, ear pain, ear ringing, eye pain, eye redness, hearing loss, mouth pain, mouth swelling, nasal discharge, nose bleeding, nose congestion, nose pain, photophobia, tearing, throat pain, throat swelling, voice changes, others Respiratory: reports: SOB with excertion Cardiovascular: reports: edema Gastrointestinal: denies: abdomen distended, abdominal pain, blood streaked bowels, constipated, diarrhea, dysphagia, difficulty swallowing, hematemesis, melena, nausea, poor appetite, poor fluid intake, rectal bleeding, rectal pain, vomiting, others Genitourinary: denies: abnormal vagina bleeding, burning, dyspareunia, dysuria, flank pain, frequency, hematuria, incontinence, pain, , vagina discharge, urgency, others Neurological: reports: dizziness, headache Musculoskeletal: denies: back pain, gout, joint pain, joint swelling, muscle pain, muscle stiffness, neck pain, others Integumetry: denies: bruises, change in color, change in hair/nails, dryness, laceration, lesions, lumps, rash, wounds, others Allergic/Immunocompromised: denies: Difficulty Healing, Frequent Infections, Hives, Itching, others Hematologic/Lymphatic: denies: anemia, blood clots, easy bleeding, easy bruising, swollen glands, others Endocrine: denies: excessive hunger, excessive sweating, excessive thirst, excessive urination, flushing, intolerance to cold, intolerance to heat, unexplained weight gain, unexplained weight loss, others Psychiatric: denies: anxiety, bipolar disorder, depression, hopeless, panic disorder, schizophrenia, sleepless, suicidal, others Physical Exam General Appearance: Mild Distress, Normal HEENT: Normal ENT Inspection, Pharynx Normal, TMs Normal Neck: Full Range of Motion, Non-Tender, Normal, Normal Inspection Respiratory: Chest Non-Tender, Lungs Clear, No Accessory Muscle Use, No Respiratory Distress, Normal Breath Sounds Cardiovascular: No JVD, No Murmur, No Gallop, Normal Peripheral Pulses, Regular Rate/Rhythm, Other (2+ pitting edema) Breast Exam: Deferred Gastrointestinal: No Organomegaly, Non Tender, No Pulsatile Mass, Normal Bowel Sounds, Soft Genitalia: Deferred Pelvic: Deferred Rectal: None Extremities: No calf tenderness, Normal capillary refill, Normal inspection, Normal range of motion, Non-tender, No pedal edema Neurologic: Alert, licensing analyst II-XII nml as Tested, No Motor Deficits, Normal Affect, No Sensory Deficits, Other (anxious) Cerebellar Function: Normal Reflexes: Normal Skin: Dry, Normal Color, Warm Lymphatic: No Adenopathy Was a procedure done? Was a procedure done?: No X-Ray, Labs, Meds, VS Vital Signs Date Time Temp Pulse Resp B/P (MAP) Pulse Ox O2 Delivery O2 Flow Rate FiO2 02/06/25 15:46 104 02/06/25 15:32 97.9 72 20 185/109 93 97.9 Lab Test 02/06/25 16:48 02/06/25 15:50 Range/Units White Blood Count 5.6 4.4-10.8 10^3/uL Red Blood Count 4.62 4.0-5.20 10^6/uL Hemoglobin 14.9 12.2-16.2 g/dL Hematocrit 43.9 36.0-46.0 % Mean Corpuscular Volume 94.9 80.0-100.0 fL Mean Corpuscular Hemoglobin 32.3 H 28.0-32.0 pg Mean Corpuscular Hemoglobin Concent 34.0 32.0-36.0 g/dL Red Cell Distribution Width 14.5 H 11.8-14.3 % Platelet Count 306 140-450 10^3/uL Mean Platelet Volume 7.6 6.9-10.8 fL Neutrophils (%) (Auto) 71.5 37.0-80.0 % Lymphocytes (%) (Auto) 20.3 10.0-50.0 % Monocytes (%) (Auto) 7.1 0.0-12.0 % Eosinophils (%) (Auto) 0.4 0.0-7.0 % Basophils (%) (Auto) 0.7 0.0-2.0 % Neutrophils # (Auto) 4.0 1.6-8.6 10 ^3/uL Lymphocytes # (Auto) 1.1 0.4-5.4 10 ^3/uL Monocytes # (Auto) 0.4 0-1.3 10 ^3/uL Eosinophils # (Auto) 0 0-0.8 10 ^3/uL Basophils # (Auto) 0 0-0.2 10 ^3/uL Nucleated Red Blood Cells 0.1 % Sodium Level 144 136-145 mmol/L Potassium Level 3.8 3.5-5.1 mmol/L Chloride Level 104 98-107 mmol/L Carbon Dioxide Level 29 20-31 mmol/L Anion Gap 11 5-15 Blood Urea Nitrogen 14 9-23 mg/dL Creatinine 0.87 0.550-1.02 mg/dL Glomerular Filtration Rate Calc 78 >90 mL/min BUN/Creatinine Ratio 16.1 10.0-20.0 Serum Glucose 138 H 74-106 mg/dL Calcium Level 9.1 8.7-10.4 mg/dL Total Bilirubin 0.2 0.2-1.0 mg/dL Aspartate Amino Transferase (AST) 47 H 13-40 U/L Alanine Aminotransferase (ALT) 35 7-40 U/L Alkaline Phosphatase 116 46-116 U/L Troponin I High Sensitivity 3 L </=34 ng/L Total Protein 6.7 5.7-8.2 g/dL Albumin 4.4 3.2-4.8 g/dL Plasma/Serum Blood Alcohol Pending POC Glucose 161 H 70-106 mg/dl Time of 1ST Reevaluation: 17:00 Reevaluation 1ST: Improved Patient Education/Counseling: Diagnosis, Treatment Family Education/Counseling: No Family Present Departure 1 Departure Time of Disposition: 17:30 Impression: Primary Impression: TIA (transient ischemic attack) Disposition: 30 STILL A PATIENT Admit to: Tele Condition: Fair Critical Care Note Critical Care Time?: No Stability Stability form required: MADDY Rosenberg RESIDENT Feb 06, 2025 16:08
--- NOTE | 2025-02-06 16:45 | DVH ---
CT STROKE CTH Indication: r/o stroke EXAM DATE: 02/06/2025 04:05 PM COMPARISON: HEAD WITHOUT CONTRAST on DOS: 09/12/21 TECHNIQUE: CT of the head without intravenous contrast. RADIATION DOSE: CTDIvol: 60.33 mGy, DLP: 1068 mGy*cm FINDINGS: There is no intracranial hemorrhage. There is no extra-axial fluid, mass, mass effect or midline shif t. The ventricles are midline and normal in size. Basilar cisterns are patent. Mild periventricular a nd subcortical white matter chronic microvascular ischemic changes. Left cerebellar encephalomalacia. The paranasal sinuses and mastoids are well-pneumatized. Imaged portion of the orbits are unremarkabl e. IMPRESSION: No intracranial hemorrhage or mass effect. Mild chronic microvascular ischemic changes.
--- NOTE | 2025-02-06 16:46 | DVH ---
AP portable chest CLINICAL INDICATION: b/l crackles Comparison: 09/12/2021 FINDINGS: Heart size is slightly enlarged in the aorta is tortuous. There are no infiltrates or effus ions IMPRESSION: 1. No acute cardiopulmonary pathology
[2025-02-06 17:00] LABS: Hematocrit 43.9 % (36.0-46.0); Hemoglobin 14.9 g/dL (12.2-16.2); Mean Corpuscular Hemoglobin 32.3 pg (28.0-32.0); Mean Corpuscular Volume 94.9 fL (80.0-100.0); Nucleated Red Blood Cells % 0.1 %
[2025-02-06 17:15] LABS: Alanine Aminotransferase 35 U/L (7-40); Albumin 4.4 g/dL (3.2-4.8); Alkaline Phosphatase 116 U/L (46-116); Anion Gap 11 (5-15); BUN/Creatinine Ratio 16.1 (10.0-20.0); Blood Urea Nitrogen 14 mg/dL (9-23); Calcium 9.1 mg/dL (8.7-10.4); Carbon Dioxide 29 mmol/L (20-31); Chloride 104 mmol/L (98-107); Potassium 3.8 mmol/L (3.5-5.1); Sodium 144 mmol/L (136-145); Total Protein 6.7 g/dL (5.7-8.2)
[2025-02-06 17:16] LABS: Bilirubin, Total 0.2 mg/dL (0.2-1.0); Glucose 138 mg/dL (74-106)
[2025-02-06] MEDS ORDERED: ATORVASTATIN 20 MG TAB PO ONE (17:45)
[2025-02-06] MEDS ORDERED: ACETAMINOPHEN 325 MG TAB PO PRN (18:15)
--- NOTE | 2025-02-06 18:30 | DVHHP2 ---
History of Present Illness History of Present Illness Patient is 54 years old female with past medical history of hypertension, diabetes mellitus type 2,, EF 25%, anxiety, history of substance abuse, marijuana/methamphetamine, chronic alcoholism, nicotine dependence, history of liver disease-cirrhosis blood cells hepatic steatosis came with a complaint of dizziness that started 1 day before yesterday. As per patient she was at work when she started having dizziness like her heads were swinging around with some nausea and vomiting 1 times, no blood. On further inquiry patient also reported having slurred speech yesterday throughout the whole day. Patient also reported chronic headache. Patient denied any loss of consciousness, chest pain, shortness of breaths, diarrhea, palpitation, acute joint pain or swelling. At the ER patient's blood pressure was 185/109, pulse 104, blood sugar 161. Negative for troponin I. CT head negative for acute intracranial abnormality. Chest x-ray no acute abnormality PMH-hypertension, diabetes mellitus type 2,, EF 25%, anxiety, history of substance abuse, marijuana/methamphetamine, chronic alcoholism, nicotine dependence, history of liver disease-cirrhosis blood cells hepatic steatosis PSH- cholecystectomy, hysterectomy, cervical spine surgery/neck surgery Allergy- NKDA Personal History/ Social History- smokes 1 pack per week, chronic alcoholic, history of substance abuse marijuana/amphetamine, lives at home -family history of diabetes mellitus, cancer -home meds amlodipine, carvedilol 12.5 mg b.i.d., aspirin, atorvastatin. Patient's press assistant and feeder Dr. Rodriguez prescribed Eliquis but patient reported she does not take it, also taking Lasix. Patient denied taking metformin, trazodone. Review of Systems Review of Systems Review of other system Cardiovascular- deny acute chest pain or shortness of breath or cough or palpitation Respiratory denies cough or short of breath or wheezing Gastrointestinal- denies any rectal bleeding, nausea or vomiting Musculoskeletal-denies acute joint swelling or tenderness or redness Psychiatry- denies depression or SI or HI Skin- denies acute rash or purpura Allergies: Coded Allergies: NO KNOWN ALLERGIES (Unverified , 01/12/17) Medications Current Medications Medications Dose Ordered Sig/Erik Route Start Time Stop Time Status Last Admin Dose Admin Sodium Chloride 10 ml Q8HR IV 02/06/25 22:00 UNV Acetaminophen 650 mg Q6HP PRN PO 02/06/25 18:15 UNV Aspirin 81 mg DAILY PO 02/07/25 10:00 UNV Carvedilol 12.5 mg BID PO 02/06/25 22:00 UNV Atorvastatin Calcium 40 mg HS PO 02/06/25 18:30 UNV Furosemide 40 mg DAILY IV 02/06/25 18:30 UNV Pantoprazole Sodium 40 mg DAILY@0600 PO 02/06/25 18:30 UNV Losartan Potassium 50 mg DAILY PO 02/07/25 10:00 UNV Exam Vital Signs Vital Signs Date Time Temp Pulse Resp B/P (MAP) Pulse Ox O2 Delivery O2 Flow Rate FiO2 02/06/25 15:46 104 02/06/25 15:32 97.9 20 185/109 93 97.9 Exam General examination- HEENT- PEERLA, no acute nasal discharge Cardiovascular- S1-S2 audible, rate and rhythm regular, no murmur Respiratory- CTAB, no wheeze or rhonchi Gastrointestinal-nontender, bowel sound+. Nondistended Musculoskeletal-no acute joint swelling or tenderness or redness Lower extremity- Neurological- cranial nerves intact, no acute dysarthria or dysphagia Psychiatry- denies depression or SI or HI Skin- no acute rash or purpura Labs/Xrays Labs Test 02/06/25 16:48 02/06/25 15:50 Range/Units White Blood Count 5.6 4.4-10.8 10^3/uL Red Blood Count 4.62 4.0-5.20 10^6/uL Hemoglobin 14.9 12.2-16.2 g/dL Hematocrit 43.9 36.0-46.0 % Mean Corpuscular Volume 94.9 80.0-100.0 fL Mean Corpuscular Hemoglobin 32.3 H 28.0-32.0 pg Mean Corpuscular Hemoglobin Concent 34.0 32.0-36.0 g/dL Red Cell Distribution Width 14.5 H 11.8-14.3 % Platelet Count 306 140-450 10^3/uL Mean Platelet Volume 7.6 6.9-10.8 fL Neutrophils (%) (Auto) 71.5 37.0-80.0 % Lymphocytes (%) (Auto) 20.3 10.0-50.0 % Monocytes (%) (Auto) 7.1 0.0-12.0 % Eosinophils (%) (Auto) 0.4 0.0-7.0 % Basophils (%) (Auto) 0.7 0.0-2.0 % Neutrophils # (Auto) 4.0 1.6-8.6 10 ^3/uL Lymphocytes # (Auto) 1.1 0.4-5.4 10 ^3/uL Monocytes # (Auto) 0.4 0-1.3 10 ^3/uL Eosinophils # (Auto) 0 0-0.8 10 ^3/uL Basophils # (Auto) 0 0-0.2 10 ^3/uL Nucleated Red Blood Cells 0.1 % Sodium Level 144 136-145 mmol/L Potassium Level 3.8 3.5-5.1 mmol/L Chloride Level 104 98-107 mmol/L Carbon Dioxide Level 29 20-31 mmol/L Anion Gap 11 5-15 Blood Urea Nitrogen 14 9-23 mg/dL Creatinine 0.87 0.550-1.02 mg/dL Glomerular Filtration Rate Calc 78 >90 mL/min BUN/Creatinine Ratio 16.1 10.0-20.0 Serum Glucose 138 H 74-106 mg/dL Calcium Level 9.1 8.7-10.4 mg/dL Total Bilirubin 0.2 0.2-1.0 mg/dL Aspartate Amino Transferase (AST) 47 H 13-40 U/L Alanine Aminotransferase (ALT) 35 7-40 U/L Alkaline Phosphatase 116 46-116 U/L Troponin I High Sensitivity 3 L </=34 ng/L Total Protein 6.7 5.7-8.2 g/dL Albumin 4.4 3.2-4.8 g/dL Plasma/Serum Blood Alcohol 3.9 <10 mg/dL POC Glucose 161 H 70-106 mg/dl SEPSIS Sepsis Screen Date sepsis recognized/suspect: Feb 06, 2025 Time Sepsis recognized/suspect: 1531 Recent Procedure: No On Antibiotic Therapy: No Respiratory Rate >20: No Heart Rate >90: No Temp<36 C (96.8 F) or >38.3 C: No SBP <90 or MAP <65 mmHG: No New Acute Mental Status Change: No Is the patient on CPAP, BIPAP,: No Physician Orders Electrocardigram (02/06/25 15:53) Ct Head Cva (02/06/25 16:05) Chest Xray 1 View (02/06/25 16:05) Drug Screen (02/06/25 16:05) Admit (02/06/25 18:07) Allergies (02/06/25 18:07) Code Status (02/06/25 18:07) Sodium Chloride Lock (Saline Lock Ns) (02/06/25 22:00) Complete Blood Count (02/07/25 04:00) Comprehensive Metabolic Panel (02/07/25 04:00) Cardiac Diet-2gna,Lofat,Lochol (02/06/25 Dinner) Echo 2d Mode Cardiac Dop (02/06/25 18:07) Carotid Duplx W Color Dop (02/06/25 18:07) Condition: Unstable (02/06/25 18:07) Acetaminophen Tablet (Tylenol Tablet) (02/06/25 18:15) Notify Of Changes From Base (02/06/25 18:07) Business Services Specialist Sales For 24 Hours (02/06/25 18:07) Urinalysis (02/06/25 18:21) Thyroid Stimulating Hormone (02/06/25 18:21) B-Type Natriuretic Peptide (02/06/25 18:21) Magnesium (02/06/25 18:21) Electrocardigram (02/06/25 18:21) Aspirin Enteric Coated Tablet (Ecotrin E (02/07/25 10:00) Carvedilol Tablet (Coreg Tablet) (02/06/25 22:00) Atorvastatin (Lipitor) (02/06/25 18:30) Furosemide Injection (Lasix Injection) (02/06/25 18:30) Pantoprazole Tablet (Protonix Tablet) (02/06/25 18:30) Losartan Tablet (Cozaar Tablet) (02/07/25 10:00) Vital Signs Date Time Temp Pulse Resp B/P (MAP) Pulse Ox O2 Delivery O2 Flow Rate FiO2 02/06/25 15:46 104 02/06/25 15:32 97.9 72 20 185/109 93 97.9 Laboratory Tests Test 02/06/25 16:48 White Blood Count 5.6 10^3/uL (4.4-10.8) Assessment/Plan Assessment/Plan Assessment and plan # suspected TIA # hypertensive emergency -CT head no acute intracranial abnormality -history of dizziness, slurring of speech -continue aspirin 81 mg p.o. daily -continue atorvastatin 40 mg p.o. q.h.s. -pending echo 2D -pending carotid Doppler # suspected alcohol withdrawal # chronic alcoholism -ordered thiamine and folic acid -ordered banana bag -ordered CIWA protocol # HFrEF # bilateral leg edema likely due to HFrEF -pending echo 2D -continue Lasix 40 mg IV daily -carvedilol 12.5 mg p.o. b.i.d. -losartan 50 mg p.o. daily # diabetes mellitus type 2 -monitor blood sugar level # anxiety # history of substance abuse -pending UDS # nicotine dependence -ordered nicotine patch Diet-cardiac diet, low carb diet PCP-Konstantin Trevino; Accounting File Clerk Dr. Rodriguez Goals of care, Code status full code ; discussed with >15 minutes PUD prophylaxis: Pantoprazole DVT prophylaxis: Eliquis Plan discussed with Dr. Henderson , nursing staff, Total time spent on patient evaluation, chart review, assessment and plan, discussion discussion >35 minutes Plan discussed with: Patient, Other (RN) My Orders Orders - CHEPE CONTRERAS RESIDENT Procedure Category Date Status Time Admit ADMIT 02/06/25 Transmitted 18:07 Allergies LEOBARDO 02/06/25 In Process 18:07 Code Status CODE 02/06/25 Transmitted 18:07 Sodium Chloride Lock PHA 02/06/25 Logged (Saline Lock Ns) 22:00 Complete Blood Count LAB 02/07/25 Verified 04:00 Comprehensive LAB 02/07/25 Verified Metabolic Panel 04:00 Cardiac DIET 02/06/25 Transmitted Diet-2gna,Lofat,Lochol Dinner Echo 2d Mode Cardiac US 02/06/25 Logged DOP 18:07 Carotid Duplx W Color US 02/06/25 Logged DOP 18:07 Condition: Unstable LEOBARDO 02/06/25 In Process 18:07 Acetaminophen Tablet PHA 02/06/25 Logged (Tylenol Tablet) 18:15 Notify Of Changes LEOBARDO 02/06/25 In Process From Base 18:07 Business Services Specialist Sales For LEOBARDO 02/06/25 In Process 24 Hours 18:07 Urinalysis LAB 02/06/25 Logged 18:21 Thyroid Stimulating LAB 02/06/25 Logged Hormone 18:21 B-Type Natriuretic LAB 02/06/25 Logged Peptide 18:21 Magnesium LAB 02/06/25 Logged 18:21 Electrocardigram EKG 02/06/25 Logged 18:21 Aspirin Enteric PHA 02/07/25 Logged Coated Tablet 10:00 Carvedilol Tablet PHA 02/06/25 Logged (Coreg Tablet) 22:00 Atorvastatin (Lipitor) PHA 02/06/25 Logged 18:30 Furosemide Injection PHA 02/06/25 Logged (Lasix Injection) 18:30 Pantoprazole Tablet PHA 02/06/25 Logged (Protonix Tablet) 18:30 Losartan Tablet PHA 02/07/25 Logged (Cozaar Tablet) 10:00 Date of Service: Feb 06, 2025 Billing Provider: ESTELLA HENDERSON MD Common Visit Codes: [id number] INP/OBS CARE (HIGH) Secondary Visit Codes: [id number] CARE PLAN 30 MINUTES CHEPE CONTRERAS RESIDENT Feb 06, 2025 18:30
[2025-02-06] MEDS ORDERED: LORazepam 2MG/ML-1ML VIAL IV PRN (19:00)
[2025-02-06 19:11] LABS: Urine Protein, UAD Negative (Negative)
[2025-02-06 19:13] LABS: Amphetamine Screen, Urine Neg (NEGATIVE); Barbiturate Scree,Urine Neg (NEGATIVE); Benzodiazephine Screen, Urine Neg (NEGATIVE); Cannabinoid Screen, Urine Neg (NEGATIVE); Cocaine Screen, Urine Neg (NEGATIVE); Opiate Scree,Urine Neg (NEGATIVE); Phencyclidine Screen, Urine Neg (NEGATIVE)
[2025-02-06 20:09] LABS: HDL Cholesterol 49 mg/dL (40-59)
[2025-02-06 20:13] LABS: Cholesterol 208 mg/dL (< 200); Triglycerides 679 mg/dL (< 150)
[2025-02-06 20:39] VITALS: O2SAT 98
--- NOTE | 2025-02-06 20:42 | DVH ---
ULTRASOUND CAROTID DUPLEX BILATERAL REASON FOR EXAM: TIA/carotid stenosis COMPARISON: None TECHNIQUE: Using real-time freeze-frame technique with a high-frequency small parts transducer, mult iple longitudinal and transverse sections were obtained. Simultaneous color flow Doppler imaging was performed. FINDINGS: There is mild calcified plaque in bilateral carotid bulbs. Waveforms are normal. Flow is laminar throughout. Peak systolic velocities as well as ICA/CCA ratios are normal. Flow through the vertebral and external carotid arteries is antegrade bilaterally. PEAK SYSTOLIC VELOCITIES (cm/sec): Note that the heart rhythm is irregular which may skew velocity measurements and extrapolated degree of stenosis. RIGHT: CCA 104.2 Proximal ICA 90.5 Mid ICA 40.6 Distal ICA 69.8 ECA 89.9 ICA/CCA ratio 0.9 LEFT: CCA 71.0 Proximal ICA 32.2 Mid ICA 52.3 Distal ICA 40.0 ECA 56.8 ICA/CCA ratio 0.7 IMPRESSION: Mild atherosclerotic disease. No hemodynamically significant stenosis. Any narrowing is less than 5 0%. Measurement of carotid stenosis is based on velocity parameters that correlate the residual internal carotid diameter with that of the more distal vessel in accordance with the [place] Symptomati c Carotid Endarterectomy Trial (NASCET).
[2025-02-06] MEDS: FOLIC ACID 1 MG TAB PO ONE (20:46)
[2025-02-06] MEDS: PANTOPRAZOLE 40 MG TAB PO SCH (20:47)
[2025-02-06] MEDS: ATORVASTATIN 20 MG TAB PO SCH (20:47)
[2025-02-06] MEDS: THIAMINE 100mg/ml INJ (200mg/2ml VIAL) IV ONE (20:48)
[2025-02-06] MEDS: NICOTINE 7MG/24HR TOPICAL PATCH TD SCH (20:48)
[2025-02-06] MEDS: FUROSEMIDE 40 MG/4 ML VIAL IV SCH (20:48)
[2025-02-06] MEDS: CARVEDILOL 3.125 MG TAB PO ONE (20:49)
[2025-02-06] MEDS: SODIUM CHLOR 0.9% PF (SALINE LOCK) 10ML VIAL/SYR IV SCH (22:20)
[2025-02-06] MEDS: CARVEDILOL 12.5 MG TAB PO SCH (22:20)
[2025-02-06] MEDS: APIXABAN 5 MG TAB PO SCH (22:20)
[2025-02-07] VITALS (8 sets, daily range): BP systolic 131–198; BP diastolic 80–115; PULSE 60–92; RESP 16–20; TEMP 97.7–98.7; O2SAT 93–98
[2025-02-07 05:55] LABS: Hematocrit 38.7 % (36.0-46.0); Hemoglobin 13.2 g/dL (12.2-16.2); Mean Corpuscular Hemoglobin 32.4 pg (28.0-32.0); Mean Corpuscular Volume 94.9 fL (80.0-100.0); Nucleated Red Blood Cells % 0.1 %
[2025-02-07 06:17] LABS: Alanine Aminotransferase 26 U/L (7-40); Albumin 3.7 g/dL (3.2-4.8); Alkaline Phosphatase 106 U/L (46-116); Anion Gap 11 (5-15); BUN/Creatinine Ratio 10.9 (10.0-20.0); Bilirubin, Total 0.5 mg/dL (0.2-1.0); Blood Urea Nitrogen 12 mg/dL (9-23); Calcium 8.7 mg/dL (8.7-10.4); Carbon Dioxide 27 mmol/L (20-31); Chloride 107 mmol/L (98-107); Glucose 134 mg/dL (74-106); Magnesium 1.7 mg/dL (1.6-2.6); Potassium 3.5 mmol/L (3.5-5.1); Sodium 145 mmol/L (136-145); Total Protein 5.9 g/dL (5.7-8.2)
[2025-02-07] MEDS: THIAMINE HCL 100 MG TAB PO SCH (10:59)
[2025-02-07] MEDS: LOSARTAN POTASSIUM 50 MG TAB PO SCH (10:59)
[2025-02-07] MEDS: ERGOCALCIFEROL 50,000 UNIT(1.25MG) CAP PO SCH (10:59)
[2025-02-07] MEDS: FOLIC ACID 1 MG TAB PO SCH (11:00)
[2025-02-07] MEDS: ASPirin-EC 81 mg tab PO SCH (11:01)
[2025-02-07] MEDS ORDERED: OMEP20TA PO (13:39)
--- NOTE | 2025-02-07 16:02 | ECG ---
[facility] Test Date: 2025-02-06 Test Time: 15:46:32 Pat Name: SHAY GLASS Department: Room: [address] [place] [address] A Gender: F Armament Repairer: GP : 1970 Requested By: MADDY HOLLAND Order Number: [id number] Reading MD: Michael Cisneros Measurements Intervals [place] Rate: 104 P: 67 IN: 185 QRS: 130 QRSD: 113 T: -69 QT: 363 QTc: 478 Interpretive Statements Sinus tachycardia Atrial premature complexes Incomplete right bundle branch block Low voltage, precordial leads Baseline wander in lead(s) II,III,aVR,aVF,V4 Electronically Signed On 02-07-2025 16:39:21 PDT by Michael Cisneros Please click the below link to view image of tracing.
--- NOTE | 2025-02-07 16:02 | ECG ---
[facility] Test Date: 2025-02-07 Test Time: 07:41:43 Pat Name: SHAY GLASS Department: Room: [address] [place] [address] A Gender: F Inspector Fabric: LISETTE : 1970 Requested By: CHEPE CONTRERAS Order Number: [id number] Reading MD: Michael Cisneros Measurements Intervals [place] Rate: 59 P: 39 [place]: 211 QRS: 128 QRSD: 111 T: 40 QT: 576 QTc: 571 Interpretive Statements Sinus rhythm Prolonged [place] interval Right axis deviation Low voltage, precordial leads Nonspecific T abnormalities, anterior leads Prolonged QT interval Electronically Signed On 02-07-2025 16:39:38 PDT by Michael Cisneros Please click the below link to view image of tracing.
[2025-02-07] MEDS: MAGNESIUM OXIDE 400 MG TAB PO ONE (17:02)
[2025-02-07] MEDS: MULTIPLE VITAMIN TAB PO ONE (17:02)
[2025-02-07] MEDS: hydrALAZINE HCL 20 MG/ML VL IV STA (17:03)
--- NOTE | 2025-02-07 17:55 | DVHSR ---
APPROVED REPORT EXAM: Two-dimensional and M-mode echocardiogram with Doppler and color Doppler. Blood Pressure: 171/94 mmHg INDICATION CHF RISK FACTORS Height: 68, Weight: 254 DIMENSIONS LVDd5.0 (3.8-5.7cm)LA (2D)4.3 (1.9-4.0cm)Aortic Root3.7 (2.0-3.7cm) LVDs3.5 (2.5-4.0cm)LA (MM) (1.9-4.0cm)Aortic Cusp Exc1.6 (1.5-2.0cm) EF (%) 58.0 (55-70%)Rt. Atrium3.7 (1.9-4.0cm)Asc. Aorta cm Mitral Valve MitralMitral Stenosis E wave0.68m/sMV Mean GR.mmHg A wave0.75m/sMV Peak GR.31mmHg E/A ratio0.92D MVAcm2 DECEL Paex137keKFWGI 1/2 Kjnh50yc IVRTmsDop MVA2.76cm2 Aortic Valve Aortic ValveAortic Stenosis V11.05m/Hannah Mean GR.4mmHg V21.37m/Hannah Peak GR.8mmHg LVOT Diameter1.7 (1.8-2.4cm)Doppler AVA1.74cm2 Pulmonic Valve V20.99m/s Other Information Technically limited study due to body habitus. Conclusion LV EF IS 60% SLIGHTLY DILATED RV BUT NORMAL FUNCTION NORMAL VALVES NO EFFUSION
[2025-02-07] MEDS ORDERED: FOLIC ACID 1 MG, MAGNESIUM SULF SDV 50% 8 MEQ, MULTIPLE VITAMIN 10 ML, THIAMINE INJ 100... INJ SCH (18:00)
--- NOTE | 2025-02-07 19:01 | DVHPNRES ---
Progress Note Date Seen: Feb 07, 2025 Resident Creating Document: CHEPE CONTRERAS RESIDENT Medical Necessity Reason Pt with a Central, PICC or Fol: No Subjective Review of Systems Patient is 54 years old female with past medical history of hypertension, diabetes mellitus type 2,, EF 25%, anxiety, history of substance abuse, marijuana/methamphetamine, chronic alcoholism, nicotine dependence, history of liver disease-cirrhosis blood cells hepatic steatosis came with a complaint of dizziness that started 1 day before yesterday. As per patient she was at work when she started having dizziness like her heads were swinging around with some nausea and vomiting 1 times, no blood. On further inquiry patient also reported having slurred speech yesterday throughout the whole day. Patient also reported chronic headache. Patient denied any loss of consciousness, chest pain, shortness of breaths, diarrhea, palpitation, acute joint pain or swelling. At the ER patient's blood pressure was 185/109, pulse 104, blood sugar 161. Negative for troponin I. CT head negative for acute intracranial abnormality. Chest x-ray no acute abnormality PMH-hypertension, diabetes mellitus type 2,, EF 25%, anxiety, history of substance abuse, marijuana/methamphetamine, chronic alcoholism, nicotine dependence, history of liver disease-cirrhosis blood cells hepatic steatosis PSH- cholecystectomy, hysterectomy, cervical spine surgery/neck surgery Allergy- NKDA Personal History/ Social History- smokes 1 pack per week, chronic alcoholic, history of substance abuse marijuana/amphetamine, lives at home -family history of diabetes mellitus, cancer -home meds amlodipine, carvedilol 12.5 mg b.i.d., aspirin, atorvastatin. Patient's datastage consultant Dr. Rodriguez prescribed Eliquis but patient reported she does not take it, also taking Lasix. Patient denied taking metformin, trazodone. Review of other system Cardiovascular- deny acute chest pain or shortness of breath or cough or palpitation Respiratory denies cough or short of breath or wheezing Gastrointestinal- denies any rectal bleeding, nausea or vomiting Musculoskeletal-denies acute joint swelling or tenderness or redness Psychiatry- denies depression or SI or HI Skin- denies acute rash or purpura Objective vital signs Vital Sign Date Time Temp Pulse Resp B/P (MAP) Pulse Ox O2 Delivery O2 Flow Rate FiO2 02/07/25 18:31 92 198/115 (142) 02/07/25 16:57 97.9 20 96 97.9 02/07/25 13:25 Nasal Cannula* 2 28 Total Intake and Output 02/06/25 02/06/25 02/07/25 15:00 23:00 07:00 Intake Total 960 ml Balance 960 ml medications Current Medications Medications Dose Ordered Sig/Erik Route Start Time Stop Time Status Last Admin Dose Admin Sodium Chloride 10 ml Q8HR IV 02/06/25 22:00 02/07/25 06:15 10 ML Acetaminophen 650 mg Q6HP PRN PO 02/06/25 18:15 Aspirin 81 mg DAILY PO 02/07/25 10:00 02/07/25 11:01 81 MG Carvedilol 12.5 mg BID PO 02/06/25 22:00 02/07/25 11:00 12.5 MG Atorvastatin Calcium 40 mg HS PO 02/06/25 18:30 02/06/25 22:20 40 MG Furosemide 40 mg DAILY IV 02/06/25 18:30 02/07/25 11:01 40 MG Pantoprazole Sodium 40 mg DAILY@0600 PO 02/06/25 18:30 02/07/25 06:15 40 MG Losartan Potassium 50 mg DAILY PO 02/07/25 10:00 02/07/25 10:59 50 MG Nicotine 1 patch DAILY TD 02/06/25 18:45 02/07/25 11:09 1 PATCH Thiamine HCl 100 mg DAILY PO 02/07/25 10:00 02/07/25 10:59 100 MG Folic Acid 1 mg DAILY PO 02/07/25 10:00 02/07/25 11:00 1 MG Lorazepam 1 mg Q2HPRN PRN IV 02/06/25 19:00 Apixaban 5 mg BID PO 02/06/25 22:00 02/07/25 11:00 5 MG Ergocalciferol 50,000 unit Q7D PO 02/07/25 10:00 02/07/25 10:59 50,000 UNIT Multivitamins 1 tab DAILY PO 02/08/25 10:00 Magnesium Oxide 400 mg DAILY PO 02/08/25 10:00 Examination General examination- HEENT- PEERLA, no acute nasal discharge Cardiovascular- S1-S2 audible, rate and rhythm regular, no murmur Respiratory- CTAB, no wheeze or rhonchi Gastrointestinal-nontender, bowel sound+. Nondistended Musculoskeletal-no acute joint swelling or tenderness or redness Lower extremity- bilateral leg edema+ Neurological- cranial nerves intact, no acute dysarthria or dysphagia Psychiatry- denies depression or SI or HI Skin- no acute rash or purpura laboratory and microbiology Laboratory Tests 02/07/25 05:06 Test 02/07/25 05:06 Range/Units Serum Glucose 134 H 74-106 mg/dL Problem List/Assessment/Plan Problem List/Assessment/Plan Assessment and plan # suspected TIA # hypertensive emergency -CT head no acute intracranial abnormality -history of dizziness, slurring of speech -continue aspirin 81 mg p.o. daily -continue atorvastatin 40 mg p.o. q.h.s. -Eliquis 5 mg p.o. b.i.d. -started nifedipine ER 60 mg p.o. daily -echo 2D-echo 2D 60%, slightly dilated RV, - carotid Doppler-Mild atherosclerotic disease. No hemodynamically significant stenosis. Any narrowing is less than 50%. # suspected alcohol withdrawal # chronic alcoholism -on thiamine and folic acid -ordered CIAR protocol # history of atrial fibrillation, now sinus rhythm -continue Eliquis 5 mg p.o. b.i.d. -continue carvedilol 12.5 mg p.o. b.i.d. # HFpEF, acute 2D # bilateral leg edema likely due to HFpEF -acute 2D LVEF 60%, mildly dilated RV. -continue Lasix 40 mg IV daily -carvedilol 12.5 mg p.o. b.i.d. -losartan 50 mg p.o. daily # diabetes mellitus type 2 -monitor blood sugar level # anxiety # history of substance abuse - UDS negative # nicotine dependence -ordered nicotine patch Diet-cardiac diet, low carb diet PCP-Konstantin [place] Temperature Control Inspector Dr. Rodriguez Goals of care, Code status full code ; discussed with >15 minutes PUD prophylaxis: Pantoprazole DVT prophylaxis: Eliquis Plan discussed with Dr. Henderson , nursing staff, Total time spent on patient evaluation, chart review, assessment and plan, discussion discussion >25 minutes Plan discussed with: Patient, Other (RN) Plan discussed with: Patient, Other (RN) My Orders My Orders Orders - CHEPE CONTRERAS Procedure Category Date Status Time Communication Order ORDERS 02/06/25 Transmitted 18:59 Communication Order ORDERS 02/06/25 Transmitted 18:59 Admit ADMIT 02/06/25 Transmitted 19:29 Ergocalciferol PHA 02/07/25 In Process (Vitamin D 50,000 10:00 Multiple Vitamin PHA 02/08/25 In Process Tablet (Mvi Tab) 10:00 Magnesium Oxide PHA 02/08/25 In Process Tablet (Mag-Ox Tablet) 10:00 Date of Service: Feb 07, 2025 Billing Provider: ESTELLA HENDERSON MD Common Visit Codes: [id number] INP/OBS CARE(HIGH) CHEPE CONTRERAS RESIDENT Feb 07, 2025 19:01 ESTELLA HENDERSON MD Feb 15, 2025 21:55
[2025-02-07] MEDS ORDERED: hydrALAZINE HCL 20 MG/ML VL IV ONE (19:15)
[2025-02-07] MEDS: hydrALAZINE HCL 20 MG/ML VL IV ONE (19:40)
[2025-02-08 01:00] VITALS: BP 135/75; PULSE 73; RESP 16; TEMP 97.7; O2SAT 95
[2025-02-08 05:06] VITALS: BP 151/89; PULSE 79; RESP 18; TEMP 97.6; O2SAT 94
[2025-02-08 08:00] VITALS: RESP 16
--- NOTE | 2025-02-08 08:07 | DVHDSRES ---
Discharge Summary Date of Admission Resident Creating Document: CHEPE CONTRERAS RESIDENT Feb 06, 2025 at 18:07 Date of Discharge: Feb 08, 2025 Admitting Diagnosis Hypertensive emergency TIA Labs/Diagnostic Data: Laboratory Results Test 02/07/25 05:06 02/06/25 18:21 02/06/25 16:48 02/06/25 16:05 White Blood Count 6.3 10^3/uL (4.4-10.8) Red Blood Count 4.08 10^6/uL (4.0-5.20) Hemoglobin 13.2 g/dL (12.2-16.2) Hematocrit 38.7 % (36.0-46.0) Mean Corpuscular Volume 94.9 fL (80.0-100.0) Mean Corpuscular Hemoglobin 32.4 pg (28.0-32.0) Mean Corpuscular Hemoglobin Concent 34.1 g/dL (32.0-36.0) Red Cell Distribution Width 14.3 % (11.8-14.3) Platelet Count 273 10^3/uL (140-450) Mean Platelet Volume 7.7 fL (6.9-10.8) Neutrophils (%) (Auto) 67.3 % (37.0-80.0) Lymphocytes (%) (Auto) 21.6 % (10.0-50.0) Monocytes (%) (Auto) 9.5 % (0.0-12.0) Eosinophils (%) (Auto) 1.2 % (0.0-7.0) Basophils (%) (Auto) 0.4 % (0.0-2.0) Neutrophils # (Auto) 4.3 10 ^3/uL (1.6-8.6) Lymphocytes # (Auto) 1.4 10 ^3/uL (0.4-5.4) Monocytes # (Auto) 0.6 10 ^3/uL (0-1.3) Eosinophils # (Auto) 0.1 10 ^3/uL (0-0.8) Basophils # (Auto) 0 10 ^3/uL (0-0.2) Nucleated Red Blood Cells 0.1 % Sodium Level 145 mmol/L (136-145) Potassium Level 3.5 mmol/L (3.5-5.1) Chloride Level 107 mmol/L (98-107) Carbon Dioxide Level 27 mmol/L (20-31) Anion Gap 11 (5-15) Blood Urea Nitrogen 12 mg/dL (9-23) Creatinine 1.10 mg/dL (0.550-1.02) Glomerular Filtration Rate Calc 59 mL/min (>90) BUN/Creatinine Ratio 10.9 (10.0-20.0) Serum Glucose 134 mg/dL (74-106) Calcium Level 8.7 mg/dL (8.7-10.4) Magnesium Level 1.7 mg/dL (1.6-2.6) Total Bilirubin 0.5 mg/dL (0.2-1.0) Aspartate Amino Transferase (AST) 32 U/L (13-40) Alanine Aminotransferase (ALT) 26 U/L (7-40) Alkaline Phosphatase 106 U/L (46-116) Total Protein 5.9 g/dL (5.7-8.2) Albumin 3.7 g/dL (3.2-4.8) Urine Color Colorless (Yellow) Urine Clarity Clear (Clear) Urine pH 7.0 (5.0-9.0) Urine Specific [place] 1.007 (1.001-1.035) Urine Protein Negative (Negative) Urine Ketones Negative (Negative) Urine Blood Negative /uL (Negative) Urine Nitrite Negative (Negative) Urine Bilirubin Negative (Negative) Urine Urobilinogen Normal mg/dL (Negative) Urine Leukocyte Esterase Negative /uL (Negative) Urine RBC <1 /hpf (0 - 4) Urine Microscopic WBC 1 /HPF (0-5) Urine Squamous Epithelial Cells Few /hpf (<5) Urine Bacteria None seen /hpf (None Seen) Urine Glucose Normal mg/dL (Normal) Hemoglobin A1c 5.6 % A1C (<5.7) Phosphorus Level 4.2 mg/dL (2.4-5.1) Troponin I High Sensitivity 3 ng/L (</=34) B-Type Natriuretic Peptide 102.63 pg/mL (0-100) Triglycerides Level 679 mg/dL (< 150) Cholesterol Level 208 mg/dL (< 200) LDL Cholesterol mg/dL (< 100) HDL Cholesterol 49 mg/dL (40-59) Vitamin B12 Level 315 pg/mL (211-911) Vitamin D 25-Hydroxy 29.1 ng/mL (30.0-100) Folic Acid 9.97 ng/mL (>5.38) Thyroid Stimulating Hormone (TSH) 4.46 uIU/mL (0.55-4.78) Plasma/Serum Blood Alcohol 3.9 mg/dL (<10) Urine Opiates Screen Neg (NEGATIVE) Urine Fentanyl Screen Neg (NEGATIVE) Urine Barbiturates Screen Neg (NEGATIVE) Urine Phencyclidine Screen Neg (NEGATIVE) Urine Amphetamines Screen Neg (NEGATIVE) Urine Benzodiazepines Screen Neg (NEGATIVE) Urine Cocaine Screen Neg (NEGATIVE) Urine Cannabinoids Screen Neg (NEGATIVE) Test 02/06/25 15:50 POC Glucose 161 mg/dl (70-106) Other Laboratory Tests 02/07/25 05:06 Brief Hx & Hospital Course: Patient is 54 years old female with past medical history of hypertension, diabetes mellitus type 2,, EF 25%, anxiety, history of substance abuse, marijuana/methamphetamine, chronic alcoholism, nicotine dependence, history of liver disease-cirrhosis blood cells hepatic steatosis came with a complaint of dizziness that started 1 day before yesterday. As per patient she was at work when she started having dizziness like her heads were swinging around with some nausea and vomiting 1 times, no blood. On further inquiry patient also reported having slurred speech yesterday throughout the whole day. Patient also reported chronic headache. Patient denied any loss of consciousness, chest pain, shortness of breaths, diarrhea, palpitation, acute joint pain or swelling. At the ER patient's blood pressure was 185/109, pulse 104, blood sugar 161. Negative for troponin I. CT head negative for acute intracranial abnormality. Chest x-ray no acute abnormality. Echo 2D revealed LVEF 60%. Patient was treated conservatively symptoms improved. No acute neurological deficit noted. Patient is being discharged home with the nifedipine ER 60 mg p.o. daily, carvedilol 12.5 mg p.o. b.i.d., losartan 50 mg p.o. daily. Patient was advised to continue Eliquis 5 mg p.o. b.i.d. and aspirin 81 mg p.o. daily. Patient's meds were sent to the pharmacy electronically. Patient was advised to follow up at the discharge clinic and also with the primary care physician in 1-2 weeks. Patient was hemodynamically stable on discharge Operations or Procedures [address] [address] Ph: [phone] DIAGNOSTIC IMAGING Diagnostic Imaging Report : [id number] Signed PATIENT: SHAY GLASSCCT: [id number] UNIT: [id number] : 1970 LOC: ER ROOM / BED: / AGE / SEX: 54 / F ADM STATUS: REG ER SERVICE 1605 ORDERING PHYSICIAN: MADDY HOLLAND RESIDENT PROCEDURE(s): CTH - STROKE CTH REASON: r/o stroke ORDER NUMBER(s): [id number], ACCESSION NUMBER(s): [id number] CT STROKE CTH Indication: r/o stroke EXAM DATE: 02/06/2025 04:05 PM COMPARISON: HEAD WITHOUT CONTRAST on DOS: 09/12/21 TECHNIQUE: CT of the head without intravenous contrast. RADIATION DOSE: CTDIvol: 60.33 mGy, DLP: 1068 mGy*cm FINDINGS: There is no intracranial hemorrhage. There is no extra-axial fluid, mass, mass effect or midline shift. The ventricles are midline and normal in size. Basilar cisterns are patent. Mild periventricular and subcortical white matter chronic microvascular ischemic changes. Left cerebellar encephalomalacia. The paranasal sinuses and mastoids are well-pneumatized. Imaged portion of the orbits are unremarkable. IMPRESSION: No intracranial hemorrhage or mass effect. Mild chronic microvascular ischemic changes. ATED BY: LAXMI SAENZ MD DICTATED DATE/TIME: 02/06/251645 SIGNED BY: LAXMI SAENZ MD SIGNED DATE/TIME: 02/06/25 164 CC: [place] [id number] Ph: [phone] DIAGNOSTIC IMAGING Diagnostic Imaging Report : [id number] Signed PATIENT: SHAY GLASSCCT: [id number] UNIT: [id number] : 1970 LOC: OVERFLOW ROOM / BED: 1022-ERT / A AGE / SEX: 54 / F ADM STATUS: ADM IN SERVICE 1801 ORDERING PHYSICIAN: CHEPE CONTRERAS PROCEDURE(s): CARCL - CAROTID DUPLX W COLOR DOP REASON: TIA/carotid stenosis ORDER NUMBER(s): [id number], ACCESSION NUMBER(s): [id number] ULTRASOUND CAROTID DUPLEX BILATERAL REASON FOR EXAM: TIA/carotid stenosis COMPARISON: None TECHNIQUE: Using real-time freeze-frame technique with a high-frequency small parts transducer, multiple longitudinal and transverse sections were obtained. Simultaneous color flow Doppler imaging was performed. FINDINGS: There is mild calcified plaque in bilateral carotid bulbs. Waveforms are normal. Flow is laminar throughout. Peak systolic velocities as well as ICA/CCA ratios are normal. Flow through the vertebral and external carotid arteries is antegrade bilaterally. PEAK SYSTOLIC VELOCITIES (cm/sec): Note that the heart rhythm is irregular which may skew velocity measurements and extrapolated degree of stenosis. RIGHT: CCA 104.2 Proximal ICA 90.5 Mid ICA 40.6 Distal ICA 69.8 ECA 89.9 ICA/CCA ratio 0.9 LEFT: CCA 71.0 Proximal ICA 32.2 Mid ICA 52.3 Distal ICA 40.0 ECA 56.8 ICA/CCA ratio 0.7 IMPRESSION: Mild atherosclerotic disease. No hemodynamically significant stenosis. Any narrowing is less than 50%. Measurement of carotid stenosis is based on velocity parameters that correlate the residual internal carotid diameter with that of the more distal vessel in accordance with the [place] Symptomatic Carotid Endarterectomy Trial (NASCET). ATED BY: CLIF CAIN MD DICTATED DATE/TIME: 02/06/252039 SIGNED BY: CLIF CAIN MD SIGNED DATE/TIME: 02/06/252039 CC: [place] [id number] Ph: [phone] DIAGNOSTIC IMAGING Diagnostic Imaging Report : [id number] Signed PATIENT: SHAY GLASSCCT: [id number] UNIT: [id number] : 1970 LOC: ER ROOM / BED: / AGE / SEX: 54 / F ADM STATUS: REG ER SERVICE 1605 ORDERING PHYSICIAN: MADDY HOLLAND RESIDENT PROCEDURE(s): CXR1 - CHEST XRAY 1 VIEW REASON: b/l crackles ORDER NUMBER(s): [id number], ACCESSION NUMBER(s): [id number] AP portable chest CLINICAL INDICATION: b/l crackles Comparison: 09/12/2021 FINDINGS: Heart size is slightly enlarged in the aorta is tortuous. There are no infiltrates or effusions IMPRESSION: 1. No acute cardiopulmonary pathology ATED BY: KENIA KIM MD DICTATED DATE/TIME: 02/06/251643 SIGNED BY: KENIA KIM MD SIGNED DATE/TIME: 02/06/251643 CC: [place] [id number] Ph: [phone] DIAGNOSTIC IMAGING Diagnostic Imaging Report : [id number] Signed PATIENT: SHAY GLASSCCT: [id number] UNIT: [id number] : 1970 LOC: OVERFLOW ROOM / BED: [address] [place] [address] AGE / SEX: 54 / F ADM STATUS: ADM IN SERVICE 1846 ORDERING PHYSICIAN: CHEPE CONTRERAS RESIDENT PROCEDURE(s): ECIDC - ECHO 2D MODE CARDIAC DOP REASON: CHF ORDER NUMBER(s): [id number], ACCESSION NUMBER(s): [id number] APPROVED REPORT EXAM: Two-dimensional and M-mode echocardiogram with Doppler and color Doppler. Blood Pressure: 171/94 mmHg INDICATION CHF RISK FACTORS Height: 68, Weight: 254 DIMENSIONS LVDd 5.0 (3.8-5.7cm) LA (2D) 4.3 (1.9-4.0cm) Aortic Root 3.7 (2.0- 3.7cm) LVDs 3.5 (2.5-4.0cm) LA (MM) (1.9-4.0cm) Aortic Cusp Exc 1.6 (1.5- 2.0cm) EF (%) 58.0 (55-70%) Rt. Atrium 3.7 (1.9-4.0cm) Asc. Aorta cm Mitral Valve Mitral Mitral Stenosis E wave 0.68m/s MV Mean GR. mmHg A wave 0.75m/s MV Peak GR. 31mmHg E/A ratio 0.9 2D MVA cm2 DECEL Time 237ms PRESS 1/2 Time 80ms IVRT ms Dop MVA 2.76cm2 Aortic Valve Aortic Valve Aortic Stenosis V1 1.05m/s AO Mean GR. 4mmHg V2 1.37m/s AO Peak GR. 8mmHg LVOT Diameter 1.7 (1.8-2.4cm) Doppler LITTLE 1.74cm2 Pulmonic Valve V2 0.99m/s Other Information Technically limited study due to body habitus. Conclusion LV EF IS 60% SLIGHTLY DILATED RV BUT NORMAL FUNCTION NORMAL VALVES NO EFFUSION SIGNED BY: CLAU OCONNOR MD SIGNED DATE/TIME: 02/07/25 4758 CC: Condition at Discharge: Stable Final Diagnosis/Problems List # TIA # hypertensive emergency # suspected alcohol withdrawal # chronic alcoholism # history of atrial fibrillation, now sinus rhythm # HFpEF, acute 2D # bilateral leg edema likely due to HFpEF # diabetes mellitus type 2 # anxiety # nicotine dependence #Obesity Discharge Disposition: Home Discharge Instruct/Medications Diet: Consistent carbohydrate, Cardiac 2g Na,low cholest Activity: No Restrictions, As Tolerated Follow Up/Referral: Please follow up at the discharge clinic Please follow up with the primary care physician in 1 week Please follow up with the waste baler as per schedule Medications: Aspirin 81 mg p.o. daily Eliquis 5 mg p.o. b.i.d. Atorvastatin 40 mg p.o. q.h.s. Carvedilol 12.5 mg p.o. b.i.d. Losartan 50 mg p.o. daily Nifedipine ER 60 mg p.o. daily Lasix 20 mg p.o. daily Folic acid 1 mg p.o. daily Pantoprazole 20 mg p.o. daily Ergo cholecalciferol 33694 every week Scheduled Amlodipine Besylate-Benazepril (Amlodipine Besylate/Benaz), 1 CAP PO DAILY, (Reported) Apixaban Base (Eliquis), 1 TAB PO BID, (Reported) Aspirin (Aspirin 81), 81 MG PO DAILY Carvedilol (Carvedilol), 1 TAB PO BID Ergocalciferol (Vitamin D 97303 Unit), 50,000 UNIT PO QWEEKLY Lidocaine (Lidocaine), 2 PATCH TOP DAILY, (Reported) Losartan Potassium (Losartan Potassium), 1 TAB PO DAILY Nifedipine (Nifedipine Er), 1 TAB PO DAILY Omeprazole (Gnp Omeprazole), 1 TAB PO DAILY, (Reported) Discharge Statement: "Patient was advised to return to the ER or call 911 if any headaches, dizziness, shortness of breath, chest pain, abdominal pain, bleeding, fevers, or worsening of medical condition. Patient was counseled about treatment plan, medications, possible side effects, patientverbalized understanding. All questions were answered to the best of my ability. This discharge took greater then 30 minutes in planning, reviewing documentation, counseling the patient, and discussing with other team members." ASSESSMENT ASSESSMENT Assessment Date of Service: Feb 08, 2025 Billing Provider: ESTELLA CELAYA MD Common Visit Codes: 00006-DFO/OBS DISCH DAY >30min CHEPE CONTRERAS RESIDENT Feb 08, 2025 08:07 ESTELLA CELAYA MD Feb 15, 2025 22:35
[2025-02-08] MEDS: MULTIPLE VITAMIN TAB PO SCH (08:17)
[2025-02-08] MEDS: MAGNESIUM OXIDE 400 MG TAB PO SCH (08:17)
[2025-02-08] MEDS ORDERED: LOSA-534 PO (08:38)
[2025-02-08] MEDS ORDERED: NIFE1TAB30 PO (08:38)
[2025-02-08] MEDS ORDERED: ERGO1CAP23 PO (08:38)
[2025-02-08 09:18] VITALS: BP 159/104; PULSE 70; RESP 18; TEMP 97.7; O2SAT 95
[2025-02-08] MEDS ORDERED: hydrALAZINE HCL 20 MG/ML VL IV ONE (09:30)
[2025-02-08 09:42] VITALS: BP 159/104; PULSE 72; TEMP 36.5
== END 2025-02-08 10:40 | disposition home or self-care (01) | DRG 46 ==
LOC: ER 15:26 → OVERFLOW 18:07 → TELE-EAST 02-07 21:17
PROVIDERS: ADMIT Student in an Organized Health Care Education/Training Program; ATTEND Student in an Organized Health Care Education/Training Program
DX: I65.23 Occlusion and stenosis of bilateral carotid arteries (principal); I16.1 Hypertensive emergency; I11.0 Hypertensive heart disease with heart failure; I50.32 Chronic diastolic (congestive) heart failure; K74.60 Unspecified cirrhosis of liver; F17.210 Nicotine dependence, cigarettes, uncomplicated; F41.9 Anxiety disorder, unspecified; E11.9 Type 2 diabetes mellitus without complications; I48.91 Unspecified atrial fibrillation; K76.0 Fatty (change of) liver, not elsewhere classified; F10.239 Alcohol dependence with withdrawal, unspecified; Y90.9 Presence of alcohol in blood, level not specified; E66.9 Obesity, unspecified; Z90.710 Acquired absence of both cervix and uterus; Z90.49 Acquired absence of other specified parts of digestive tract; Z83.3 Family history of diabetes mellitus; Z82.49 Family history of ischemic heart disease and other diseases of the circulatory system; Z80.9 Family history of malignant neoplasm, unspecified; Z91.013 Allergy to seafood; Z79.899 Other long term (current) drug therapy; Z79.82 Long term (current) use of aspirin; Z68.38 Body mass index [BMI] 38.0-38.9, adult
CPT/HCPCS: 36415; 70450; 71045; 80053; 80061; 80307; 80320; 81001; 82306; 82607; 82746; 82962; 83036; 83735; 83880; 84100; 84443; 84484; 85025; 93005; 93306; 93886; G0378